=== PATIENT | female | born 1995 | race Caucasian/White ===

== ENCOUNTER 2017-12-11 21:57 | Inpatient (IN) | payer OTHER ==
[2017-12-11 22:10] VITALS: BMI 16.6
--- NOTE | 2017-12-11 22:49 | PDOC ---
History of Present Illness - General History Source: Patient Exam Limitations: No Limitations - History of Present Illness Initial Comments: 12/11/17 23:18 The patient is a 22 year old female with a significant past medical history of IV heroin abuse (2 years) who presents to the ED with complaints of right wrist pain and swelling for one day. The patient reports swelling, redness, and 9/10 pain to her right wrist. Patient describes her right wrist pain as a pressure like sensation and it feels like her wrist is going to burst. She states she developed redness on her right wrist last night that radiates midway to her right lower arm. She also reports a subjective fever associated with present symptoms. She states the pain started secondary to her injecting herself on the back of her right hand yesterday. She reports her last heroin use was this morning. Patient states she uses clean needles and does not share needles. Denies similar symptoms in the past. Denies itching or rash. Denies chest pain or shortness of breath. Denies nausea , vomiting, or diarrhea. Denies any other symptoms. <Margy Trujillo - Last Filed: 12/11/17 23:18> <Marylu Lopez - Last Filed: 12/12/17 01:54> - General Chief Complaint: Redness To Affected Area Stated Complaint: SWOLLEN WRIST Time Seen by Provider: 12/11/17 22:24 Past History <Margy Trujillo - Last Filed: 12/11/17 23:18> - Past Medical History COPD: No - Suicide/Smoking/Psychosocial Hx Smoking History: Current every day smoker Number of Cigarettes Smoked Daily: 3 Information on smoking cessation initiated: No Drug/Substance Use Hx: Yes (heroin) Substance Use Type: Heroin <Marylu Lopez - Last Filed: 12/12/17 01:54> - Past Medical History Allergies/Adverse Reactions: Allergies Allergy/AdvReac Type Severity Reaction Status Date / Time No Known Allergies Allergy Verified 12/11/17 22:08 Home Medications: Ambulatory Orders No Home Medications 0 dose .ROUTE UTDICT 02/26/14 Review of Systems - Review of Systems Able to Perform ROS?: Yes Comments:: 12/11/17 23:18 CONSTITUTIONAL: Absent: fever, chills, diaphoresis, generalized weakness, malaise, loss of appetite HEENT: Absent: rhinorrhea, nasal congestion, throat pain, throat swelling, difficulty swallowing, mouth swelling, ear pain, eye pain, visual Changes CARDIOVASCULAR: Absent: chest pain, syncope, palpitations, irregular heart rate, lightheadedness , peripheral edema RESPIRATORY: Absent: cough, shortness of breath, dyspnea with exertion, orthopnea, wheezing, stridor, hemoptysis GASTROINTESTINAL: Absent: abdominal pain, abdominal distension, nausea, vomiting, diarrhea, constipation, melena, hematochezia GENITOURINARY: Absent: dysuria, frequency, urgency, hesitancy, hematuria, flank pain, genital pain MUSCULOSKELETAL: + wrist swelling, pain and erythema SKIN: Absent: rash, itching, pallor HEMATOLOGIC/IMMUNOLOGIC: Absent: easy bleeding, easy bruising, lymphadenopathy, frequent infections ENDOCRINE: Absent: unexplained weight gain, unexplained weight loss, heat intolerance, cold intolerance NEUROLOGIC: Absent: headache, focal weakness or paresthesias, dizziness, unsteady gait, seizure, mental status changes, bladder or bowel incontinence PSYCHIATRIC: Absent: anxiety, depression, suicidal or homicidal ideation, hallucinations. All Other Systems: Reviewed and Negative <Margy Trujillo - Last Filed: 12/11/17 23:18> *Physical Exam - Vital Signs Last Vital Signs Temp Pulse Resp BP Pulse Ox 98.4 F 133 H 18 122/71 96 12/11/17 22:08 12/11/17 22:08 12/11/17 22:08 12/11/17 22:08 12/11/17 22:08 - Physical Exam Comments: 12/11/17 23:18 GENERAL: + thin appearing Awake and alert. No acute distress. HEENT: Normocephalic, atraumatic. PERRLA, EOMI. No conjunctival pallor. Sclera are non- icteric. Moist mucous membranes. Oropharynx is clear. NECK: Supple. Full ROM. No JVD. Carotid pulses 2+ and symmetric, without bruits. No thyromegaly. NCo lymphadenopathy. CARDIOVASCULAR: Regular rate and rhythm. No murmurs, rubs, or gallops. Distal pulses are 2+ and symmetric. PULMONARY: No evidence of respiratory distress. Lungs clear to auscultation bilaterally. No wheezing, rales or rhonchi. ABDOMINAL: Soft. Non-tender. Non-distended. No rebound or guarding. No organomegaly. Normoactive bowel sounds. MUSCULOSKELETAL Normal range of motion at all joints. No bony deformities or tenderness. No CVA tenderness. EXTREMITIES: No cyanosis. No clubbing. No edema. No calf tenderness. SKIN: + Cellulitis of right hand that extends to her right mid forearm, the dorsal surface of right hand is swollen. There are multiple track sam on left forearm and wrist and 2 areas of injections that are erythematous and tender on the left forearm. No rashes. No jaundice. NEUROLOGICAL: Alert, awake, appropriate. Cranial nerves 2-12 intact. No deficits to light touch and temperature in face, upper extremities and lower extremities. No motor deficits in the in face, upper extremities and lower extremities. Normoreflexic in the upper and lower extremities. Normal speech. Toes are down- going bilaterally. Gait is normal without ataxia. PSYCHIATRIC: Cooperative. Good eye contact. Appropriate mood and affect. <Margy Trujillo - Last Filed: 12/11/17 23:18> - Vital Signs Last Vital Signs Temp Pulse Resp BP Pulse Ox 98.4 F 133 H 18 122/71 96 12/11/17 22:08 12/11/17 22:08 12/11/17 22:08 12/11/17 22:08 12/11/17 22:08 <Marylu Lopez - Last Filed: 12/12/17 01:54> ED Treatment Course - LABORATORY CBC & Chemistry Diagram: 12/12/17 00:01 12/12/17 00:01 <Marylu Lopez - Last Filed: 12/12/17 01:54> *DC/Admit/Observation/Transfer - Attestations Scribe Attestion: 12/11/17 23:19 Documentation prepared by Margy Trujillo, acting as remote medical coder for Marylu Lopez MD <Margy Trujillo - Last Filed: 12/11/17 23:18> - Discharge Dispostion Admit: Yes <Marylu Lopez - Last Filed: 12/12/17 01:54> Diagnosis at time of Disposition: Cellulitis of forearm, right, Cellulitis of hand
[2017-12-11] MEDS ORDERED: PIPERACILLIN/TAZOB 3.375 GM 50 ML IVPB ONE (22:57)
[2017-12-12] MEDS ORDERED: PIPERACILLIN/TAZOB 3.375 GM 3.375 GM/50 ML BAG IVPB ONE (00:19)
[2017-12-12 00:39] LABS: BASO % 0.3 % (0-2.0); EOS % 1.4 % (0-4.5); HEMATOCRIT 30.8 % (32.4-45.2); HEMOGLOBIN 10.2 GM/dL (10.7-15.3); LYMPH % 14.3 % (8-40); MCH 26.7 pg (25.7-33.7); MCHC 33.2 g/dl (32.0-36.0); MEAN CELL VOLUME 80.4 fl (80-96); MEAN PLT VOLUME 9.7 fl (7.5-11.1); MONO % 15.8 % (3.8-10.2); NEUT % 68.2 % (42.8-82.8); PLATELET COUNT 206 K/MM3 (134-434); RBC 3.83 M/mm3 (3.60-5.2); RDW 14.3 % (11.6-15.6); WHITE BLOOD COUNT 7.3 K/mm3 (4.0-10.0)
[2017-12-12 01:24] LABS: ALBUMIN 2.8 g/dl (3.4-5.0); ANION GAP 10 (8-16); BILIRUBIN,TOTAL 0.2 mg/dL (0.2-1.0); BLOOD UREA NITROGEN 12 mg/dL (7-18); CALCIUM 8.5 mg/dL (8.5-10.1); CHLORIDE 96 mmol/L (98-107); CO2 32 mmol/L (21-32); CREATININE 0.5 mg/dL (0.55-1.02); GLUCOSE,RANDOM 78 mg/dL (74-106); POTASSIUM 3.7 mmol/L (3.5-5.1); SGOT/AST 12 U/L (15-37); SGPT/ALT 8 U/L (12-78); SODIUM 138 mmol/L (136-145)
[2017-12-12 01:25] LABS: ALK PHOS 92 U/L (45-117)
[2017-12-12] MEDS ORDERED: VANCOMYCIN 1,000 MG in DEXTROSE 5%-WATER - 250 ML IVPB STA (01:42)
[2017-12-12] MEDS ORDERED: SODIUM CHLORIDE 1,000 ML IV STA (01:44)
--- NOTE | 2017-12-12 01:46 | PN ---
Teaching Attending Note Name of Resident: Tasneem Carnes ATTENDING PHYSICIAN STATEMENT I saw and evaluated the patient. I reviewed the resident's note and discussed the case with the resident. I agree with the resident's findings and plan as documented. SUBJECTIVE: 22 F with pmhx. of IV Heroin abuse who presented with right wrist pain. Also, notes associated edema. States pain is 9/10. Pain radiated to right lower arm. States she has had subjective fevers at home. Notes she injected with a sterile needle. Notes she has not shared needles. No current fevers or chills. Does note sensation on hand. OBJECTIVE: Physical: VS: Vital Signs Period Temp Pulse Resp BP Sys/Calderon Pulse Ox Last 24 Hr 98.4 F 133 18 122/71 96 REPEAT HR 82 GEN: NAD, Resting in bed, AA0X3 HEENT: NCAT, PERRL, Throat without erythema or exudates CARD: RRR S1, S2 RESP: CTAB ABD: BSx4, NTD to palpation EXT: R. Wrist pulses intact, with edema and e CBCD WBC 7.3 K/mm3 (4.0-10.0) 12/12/17 00:01 RBC 3.83 M/mm3 (3.60-5.2) 12/12/17 00:01 Hgb 10.2 GM/dL (10.7-15.3) L 12/12/17 00:01 Hct 30.8 % (32.4-45.2) L 12/12/17 00:01 MCV 80.4 fl (80-96) 12/12/17 00:01 MCHC 33.2 g/dl (32.0-36.0) 12/12/17 00:01 RDW 14.3 % (11.6-15.6) 12/12/17 00:01 Plt Count 206 K/MM3 (134-434) 12/12/17 00:01 MPV 9.7 fl (7.5-11.1) 12/12/17 00:01 CMP Sodium 138 mmol/L (136-145) 12/12/17 00:01 Potassium 3.7 mmol/L (3.5-5.1) 12/12/17 00:01 Chloride 96 mmol/L (98-107) L 12/12/17 00:01 Carbon Dioxide 32 mmol/L (21-32) 12/12/17 00:01 Anion Gap 10 (8-16) 12/12/17 00:01 BUN 12 mg/dL (7-18) 12/12/17 00:01 Creatinine 0.5 mg/dL (0.55-1.02) L 12/12/17 00:01 Creat Clearance w eGFR > 60 (>60) 12/12/17 00:01 Random Glucose 78 mg/dL (74-106) 12/12/17 00:01 Calcium 8.5 mg/dL (8.5-10.1) 12/12/17 00:01 Total Bilirubin 0.2 mg/dL (0.2-1.0) 12/12/17 00:01 AST 12 U/L (15-37) L 12/12/17 00:01 ALT 8 U/L (12-78) L 12/12/17 00:01 Alkaline Phosphatase 92 U/L (45-117) 12/12/17 00:01 Total Protein 7.0 g/dl (6.4-8.2) 12/12/17 00:01 Albumin 2.8 g/dl (3.4-5.0) L 12/12/17 00:01 HAND XRAY- PENDING EKG: NSR 84 ASSESSMENT AND PLAN: 22 F with hx. of heroin abuse presents with Right Wrist Pain, being admitted for Cellulitis 1.) R. Wrist Cellulitis - Blood cx - CT HAND - Hand Sx consult - Vanco/Zosyn - ID Conult - Type & Screen, coags 2.) Hx. OF Heroin Abuse - Detox Consult 3.) Anemia, Normocytic - Outpt. Fe studies - B12/Folate 4.) DVt Ppx - Ambulate Place in Med-Sx
[2017-12-12] MEDS ORDERED: VANCOMYCIN 1 GRAM (PRE-DOCKED) 1,000 MG/250 ML BAG IVPB ONE (02:06)
[2017-12-12 02:10] VITALS: BP 100/56; PULSE 89; TEMP 98.2
--- NOTE | 2017-12-12 02:49 | HP ---
CHIEF COMPLAINT: R hand swelling x 3 days PCP: HISTORY OF PRESENT ILLNESS: 22 y/o F with PMH IVDA (daily heroin use for 2 yrs), who presents to the ED c/o R wrist pain over the past three days. As per pt, three days ago, she tried to inject heroin into the veins at the junction of her R wrist and base of her right thumb. She tried to inject two or three times, and then stopped since she was unable to "get it to work". A day later, her R hand and RUE became increasingly edematous, erythematous and painful. Her pain is 9/10, constant, and is a "sore aching pain" that has not been alleviated with ice application. Pt also endorses trauma to her R wrist, as she hit it on her nightstand yesterday AM when she woke up. Denies CABRERA, fever, chills, chest pain, associated numbness or tingling in her extremities, or changes in urinary or bowel function. Pt has used heroin for two years and states that she does not share needles. ER course was notable for: (1) vanc 1 g x 1 , zosyn 3.375g x 1 (2) refusal of IV line (3) Recent Travel: none PAST MEDICAL HISTORY: as above PAST SURGICAL HISTORY: denies Social History: Smoking: has smoked intermittently 2-3 cigs/day for four years, has thoughts of quitting Alcohol: denies Drugs: IVDA - daily heroin use for 2 years, marijuana frequent use Family History: unknown cancer in both parents, DM, HTN Allergies No Known Allergies Allergy (Verified 12/11/17 22:08) HOME MEDICATIONS: Home Medications Medication Instructions Recorded No Home Medications 0 dose .ROUTE UTDICT 02/26/14 REVIEW OF SYSTEMS CONSTITUTIONAL: Absent: fever, chills, diaphoresis, generalized weakness, malaise, loss of appetite, weight change HEENT: Absent: rhinorrhea, nasal congestion, throat pain, throat swelling, difficulty swallowing, mouth swelling, ear pain, eye pain, visual changes CARDIOVASCULAR: Absent: chest pain, syncope, palpitations, irregular heart rate, lightheadedness , peripheral edema RESPIRATORY: Absent: cough, shortness of breath, dyspnea with exertion, orthopnea, wheezing, stridor, hemoptysis GASTROINTESTINAL: Absent: abdominal pain, abdominal distension, nausea, vomiting, diarrhea, constipation, melena, hematochezia GENITOURINARY: Absent: dysuria, frequency, urgency, hesitancy, hematuria, flank pain, genital pain MUSCULOSKELETAL: +RUE, R hand edema Absent: myalgia, arthralgia, joint swelling, back pain, neck pain SKIN: Absent: rash, itching, pallor HEMATOLOGIC/IMMUNOLOGIC: Absent: easy bleeding, easy bruising, lymphadenopathy, frequent infections ENDOCRINE: Absent: unexplained weight gain, unexplained weight loss, heat intolerance, cold intolerance NEUROLOGIC: Absent: headache, focal weakness or paresthesias, dizziness, unsteady gait, seizure, mental status changes, bladder or bowel incontinence PSYCHIATRIC: Absent: anxiety, depression, suicidal or homicidal ideation, hallucinations. PHYSICAL EXAMINATION Vital Signs 12/11/17 12/12/17 22:08 02:09 Temperature 98.4 F 98.2 F Pulse Rate 133 H Pulse Rate [ 89 Right Radial] Respiratory 18 19 Rate Blood Pressure 122/71 Blood Pressure 100/56 [Left Arm] O2 Sat by Pulse 96 Oximetry (%) GENERAL: Awake, alert, and fully oriented, in no acute distress. HEAD: Normal with no signs of trauma. EYES: Pupils equal, round and reactive to light, extraocular movements intact, sclera anicteric, conjunctiva clear. EARS, NOSE, THROAT: Ears normal, nares patent, oropharynx clear without exudates. Moist mucous membranes. NECK: Normal range of motion, supple LUNGS: Breath sounds equal, clear to auscultation bilaterally. No wheezes, and no crackles. No accessory muscle use. HEART: Regular rate and rhythm, normal S1 and S2 without murmur, rub or gallop. ABDOMEN: Soft, nontender, not distended, normoactive bowel sounds, no guarding, no rebound, no masses. MUSCULOSKELETAL: decreased active and passive ROM in R hand. Unable to flex wrist, or flex/extend DIPs, PIPs R hand. UPPER EXTREMITIES: 2+ radial pulses, warm, well-perfused. No cyanosis. No clubbing. +R hand - edema, erythema up to mid forearm. +TTP, with streaking. + track sam R wrist LOWER EXTREMITIES: 2+ posterior tibial pulses, warm, well-perfused. No calf tenderness. No peripheral edema. NEUROLOGICAL: Cranial nerves II-XII intact. Laboratory Results 12/12/17 12/12/17 12/12/17 00:01 00:01 00:01 WBC 7.3 RBC 3.83 Hgb 10.2 L Hct 30.8 L MCV 80.4 MCH 26.7 MCHC 33.2 RDW 14.3 Plt Count 206 MPV 9.7 Neutrophils % 68.2 Lymphocytes % 14.3 Monocytes % 15.8 H Eosinophils % 1.4 Basophils % 0.3 Sodium 138 Potassium 3.7 Chloride 96 L Carbon Dioxide 32 Anion Gap 10 BUN 12 Creatinine 0.5 L Creat Clearance w eGFR > 60 Random Glucose 78 Calcium 8.5 Total Bilirubin 0.2 AST 12 L ALT 8 L Alkaline Phosphatase 92 Total Protein 7.0 Albumin 2.8 L Serum , Qual Negative 12/12/17 00:01 Calcium Albumin Serum , Qual HIV 1&2 Antibody Screen Negative HIV P24 Antigen Negative RADIO -CXR - pending -R wrist imaging - pending MICRO -Blood cx: pending ASSESSMENT/PLAN: 22 y/o F with PMH IVDA (daily heroin use for 2 yrs), who presents to the ED c/o R wrist pain over the past three days. As per pt, three days ago, she tried to inject heroin into the veins at the junction of her R wrist and base of her right thumb. Pt admitted to med-surg for R wrist cellulitis. #R wrist cellulitis -R wrist with extensive edema, erythema into hand. +Track sam, +streaking - forearm -Pt currently not septic. Afebrile, HR WNL, without white count. HIV (-) -At risk for compartment syndrome. Hand surgery consult- Dr. Rand -ID consult- Dr. Marks -Received vanc 1g, zosyn 3.375g x 1 in ED. Will continue vanc 1g IVPB daily, zosyn 3.375g q6h. -PT/PTT -Type and screen -CT-hand w/contrast #Hx heroin use -Has used heroin for two years, daily -Detox consult- Dr. Bruno #Anemia -F/u folate, B12 levels -Will continue to monitor #F/E/N Continue to monitor electrolytes Regular diet, however can change to NPO if procedure needed #Dispo med-surg Visit type - Emergency Visit Emergency Visit: Yes ED Registration Date: 12/12/17 Care time: The patient presented to the Emergency Department on the above date and was hospitalized for further evaluation of their emergent condition. - New Patient This patient is new to me today: Yes Date on this admission: 12/12/17 - Critical Care Critical Care patient: No Hospitalist Screening - Colonoscopy Questionnaire Colonoscopy Questionnaire: Colonoscopy Questionnaire - Patient: 50 - 75 years old and never had a screening colonoscopy: Unknown History of colon or rectal polyps, or CA: Unknown History of IBD, Crohn's disease or UC: Unknown History of abdominal radiation therapy as a child: Unknown - Relative: 1 with colon or rectal CA, or polyps at age 60 or younger: Unknown Colon or rectal CA diagnosed at age 45 or younger: Unknown Multiple relatives with colon or rectal CA: Unknown - Outcome: Screening Result: Negative Screen
[2017-12-12] MEDS ORDERED: PIPERACILLIN/TAZOB 3.375 GM/50 ML PRE-DOCKED IVPB SCH (06:00)
[2017-12-12] MEDS ORDERED: PIPERACILLIN/TAZOB 3.375 GM/50 ML PRE-DOCKED IVPB ONE (06:15)
--- NOTE | 2017-12-12 09:01 | CONSULT ---
Consult Detox [facility] Reason for Current Admission/Consult: substance use Referred by:: petra conteh - History History of Present Illness: Patient discharged prior to completion fo consultation
--- NOTE | 2017-12-12 10:35 | CONSULT ---
Consult Consult Specialty:: hand surgery Reason for Consultation:: hand cellulitis - History of Present Illness Chief Complaint: right wrist hand cellulitis History of Present Illness: 22 yo RHD female with PMH IVDA (daily heroin use for 2 yrs), who presents to the ED c/o R wrist pain over the past three days. As per pt, three days ago, she tried to inject heroin into the veins at the junction of her R wrist and base of her right thumb. we were asked to assess. She left AMA at 416AM before we could assess - History Source History Provided By: Patient, Medical Record Limitations to Obtaining History: Intoxication - Alcohol/Substance Use History of Substance Use: reports: Heroin, Marijuana - Smoking History Smoking history: Current every day smoker Aproximately how many cigarettes per day: 3 Home Medications - Allergies Allergies/Adverse Reactions: Allergies Allergy/AdvReac Type Severity Reaction Status Date / Time No Known Allergies Allergy Verified 12/11/17 22:08 - Home Medications Home Medications: Ambulatory Orders No Home Medications 0 dose .ROUTE UTDICT 02/26/14 Physical Exam Vital Signs: Vital Signs Temperature 98.2 F 12/12/17 02:09 Pulse Rate 89 12/12/17 02:09 Respiratory Rate 19 12/12/17 02:09 Blood Pressure 100/56 12/12/17 02:09 O2 Sat by Pulse Oximetry (%) 96 12/11/17 22:08 Vital Signs Period Temp Pulse Resp BP Sys/Calderon Pulse Ox Last 24 Hr 98.2 F-98.4 F 89-133 18-19 100-122/56-71 96 Labs: CBC, BMP 12/12/17 00:01 12/12/17 00:01 Problem List - Problems (1) Cellulitis of forearm, right Assessment/Plan: 22 yo RHD female with PMH IVDA (daily heroin use for 2 yrs), who presents to the ED c/o R wrist pain over the past three days. As per pt, three days ago, she tried to inject heroin into the veins at the junction of her R wrist and base of her right thumb. we were asked to assess. She left AMA at 416AM before we could assess Code(s): L03.113 - CELLULITIS OF RIGHT UPPER LIMB (2) Cellulitis of hand Code(s): L03.119 - CELLULITIS OF UNSPECIFIED PART OF LIMB
[2017-12-12] MEDS ORDERED: PIPERACIL/TAZOB 3.375 GM 3.375 GM/50 ML PREMIX IVPB SCH (15:00)
[2017-12-13] MEDS ORDERED: VANCOMYCIN 1,000 MG in DEXTROSE 5%-WATER - 250 ML IVPB SCH (03:00)
== END 2017-12-12 03:00 | disposition left against medical advice (07) | DRG 383 ==
LOC: JER 21:57 → JERBED 12-12 01:54
PROVIDERS: ADMIT Internal Medicine; ATTEND Nurse Practitioner Acute Care
DX: L03.113 Cellulitis of right upper limb (principal); D64.9 Anemia, unspecified; F17.210 Nicotine dependence, cigarettes, uncomplicated; F11.20 Opioid dependence, uncomplicated
CPT/HCPCS: 36415; 71046-TC-FY; 73130-TC-RT-FY; 80053; 82607; 82746; 84703; 85025; 87040; 87389; 99282-25; J7030

== ENCOUNTER 2019-10-02 01:11 | Inpatient (IN) | payer OTHER ==
--- NOTE | 2019-10-02 01:35 | PDOC ---
History of Present Illness - General Chief Complaint: Overdose Stated Complaint: OVERDOSE - History of Present Illness Initial Comments: The pt is a 24F w/ a history of polysubstance abuse who presents for evaluation after reported use of heroin. The pt reportedly used 4 bags of heroin tonight with possible cocaine and xanax use. The pt was brought to her parents who had Narcan IH at home. The parents administered Narcan 8mg IH and 4mg IH was administered by EMS. The pt is 1 month s/p 30 day rehab. Parents report 7 years of substance abuse Pt unable to give history Per parents, no PMH, PSH, allergies 10/02/19 01:58 Past History - Past Medical History Allergies/Adverse Reactions: Allergies Allergy/AdvReac Type Severity Reaction Status Date / Time No Known Allergies Allergy Verified 10/02/19 01:50 Home Medications: Ambulatory Orders No Home Medications 0 dose .ROUTE UTDICT 02/26/14 COPD: No - Psycho Social/Smoking Cessation Hx Smoking History: Current every day smoker Number of Cigarettes Smoked Daily: 3 Drug/Substance Use Hx: Yes (heroin) Substance Use Type: Heroin Review of Systems - Review of Systems Able to Perform ROS?: No (2/2 medical condition) *Physical Exam - Vital Signs Initial Vital Signs Temp Pulse Resp BP Pulse Ox 97.9 F 102 H 17 116/73 100 10/02/19 01:15 10/02/19 01:15 10/02/19 01:15 10/02/19 01:15 10/02/19 01:15 10/02/19 05:35 - Physical Exam GENERAL: Obtunded, moans to sternal rub, does not follow commands HEAD: No signs of trauma, normocephalic, atraumatic EYES: pupils pinpoint, sclera anicteric, conjunctiva clear ENT: Oropharynx clear without exudates. No uvular deviation. Moist mucosa LUNGS: No distress, speaks in full sentences, clear to auscultation bilaterally HEART: Tachycardic rate with regular rhythm, normal S1 and S2, no murmurs appreciated, peripheral pulses normal and equal bilaterally ABDOMEN: Soft, normoactive bowel sounds EXTREMITIES: Normal inspection, Normal range of motion, no edema. No clubbing or cyanosis NEUROLOGICAL: Cranial nerves II through XII grossly intact SKIN: Warm, Dry 10/02/19 01:35 Procedures - Intubation Intubation Method: orotracheal Blade used: Mac Tube Size (Fr): 7.0 Medications: Rocuronium Tube position @ lip (cm): 22 Tube position confirmed by: Direct visualization, CO2 detector, Chest x-ray, Breath sounds Breath Sounds after Intubation: equal Intubation Complications: no complications Post Intubation Xray: Yes ED Treatment Course - LABORATORY CBC & Chemistry Diagram: 10/02/19 03:10 10/02/19 03:10 - RADIOLOGY Radiograph Interpretation: THIS IS A PRELIMINARY REPORT FROM [facility] DATE OF SERVICE: 2019-10-02 03:45:11 EXAM: CT HEAD WITHOUT CONTRAST No acute hemorrhage, mass or acute territorial infarct. Mucoperiosteal thickening paranasal sinuses. Trace fluid right maxillary sinus. Visualized mastoid air cells clear. Endotracheal tube. 10/02/19 04:40 Medical Decision Making - Critical Care Time Total Critical Care Time (minutes): 60 Critical Care Statement: The care of this patient involved high complexity decision making to prevent further life threatening deterioration of the patient 's condition and/or to evaluate & treat vital organ system(s) failure or risk of failure. - Medical Decision Making The pt is a 24F w/ a history of polysubstance abuse who presents for evaluation s/p known heroin use today and likely benzo and cocaine use. Pt given Narcan 0.8mg followed by 1.2mg with minimal response Respiratory depression likely 2/2 benzo use in addition to cocaine and heroin Will intubate for airway protection/respiratory depression Pt intubated with Roderick 50mg IV once ETT 22cm at the lip Pt with evidence of UTI, will give Ceftriaxone 1g IV once Lytes unremarkable LFTs wnl Pt signed out to ICU 10/02/19 04:21 CT head w/o acute pathology Propofol given for sedation Pt signed out to [facility] Admitting 10/02/19 05:38 Discharge - Discharge Information Problems reviewed: Yes Clinical Impression/Diagnosis: Heroin abuse, Respiratory depression AMS (altered mental status) Qualifiers: Altered mental status type: unspecified Qualified Code(s): R41.82 - Altered mental status, unspecified UTI (urinary tract infection) Qualifiers: Urinary tract infection type: acute cystitis Hematuria presence: without hematuria Qualified Code(s): N30.00 - Acute cystitis without hematuria Condition: Critical - Admission Yes - Follow up/Referral - Patient Discharge Instructions - Post Discharge Activity
--- NOTE | 2019-10-02 01:51 | PDOC ---
Attending Attestation - Resident Resident Name: Jakub Curtis - ED Attending Attestation I have performed the following: I have examined & evaluated the patient, The case was reviewed & discussed with the resident, I agree w/resident's findings & plan - HPI HPI: 10/02/19 02:56 see resident hpi - Physicial Exam PE: 10/02/19 02:56 agree with resident exam - Critical Care Time Total Critical Care Time: 90 Critical Care Statement: The care of this patient involved high complexity decision making to prevent further life threatening deterioration of the patient 's condition and/or to evaluate & treat vital organ system(s) failure or risk of failure. - Medical Decision Making 10/02/19 02:24-year-old female with respiratory depression secondary to benzodiazepine and heroin overdose Due to persistent respiratory distress despite multiple doses of Narcan Patient intubated with a 7.0 ET tube Tube placement confirmed Post intubation chest x-ray obtained Will admit to ICU for further management
[2019-10-02] MEDS ORDERED: NALOXONE HCL 0.4 MG/ML VIAL IVPUSH ONE ×3 (02:11→03:14)
[2019-10-02] MEDS ORDERED: NALOXONE HCL 0.4 MG/ML VIAL ONE ×2 (02:16→02:21)
[2019-10-02] MEDS ORDERED: RAPID SEQUENCE INTUBATION KIT NR ONE ×2 (02:31→03:38)
[2019-10-02] MEDS ORDERED: FLUCONAZOLE 200 MG/NS 100 ML IVPB ONE (03:00)
[2019-10-02] MEDS ORDERED: ROCURONIUM BROMIDE 50 MG/5 ML VIAL IV ONE ×3 (03:14→03:38)
[2019-10-02 03:26] LABS: BASO % 0.3 % (0-2.0); EOS % 0.1 % (0-4.5); HEMATOCRIT 39.6 % (32.4-45.2); LYMPH % 4.8 % (8-40); MCH 28.8 pg (25.7-33.7); MCHC 32.7 g/dl (32.0-36.0); MEAN CELL VOLUME 87.9 fl (80-96); MEAN PLT VOLUME 10.2 fl (7.5-11.1); MONO % 5.9 % (3.8-10.2); NEUT % 88.9 % (42.8-82.8); PLATELET COUNT 291 K/MM3 (134-434); RBC 4.51 M/mm3 (3.60-5.2); RDW 14.9 % (11.6-15.6); WHITE BLOOD COUNT 14.4 K/mm3 (4.0-10.0)
[2019-10-02 03:33] LABS: EPI CELLS 6.8 /HPF (0-5/HPF); HYALINE CASTS 8 /lpf (0-8); URINE APPEARANCE CLOUDY; URINE BACTERIA >9000 /hpf (NEGATIVE); URINE BILIRUBIN NEGATIVE (NEGATIVE); URINE COLOR YELLOW; URINE GLUCOSE (UA) 3+ (NEGATIVE); URINE KETONE NEGATIVE (NEGATIVE); URINE LEUK ESTERASE NEGATIVE (NEGATIVE); URINE NITRITE POSITIVE (NEGATIVE); URINE PROTEIN 1+ (NEGATIVE); URINE RBC 3 /hpf (0-4); URINE UROBILINOGEN 0.2 mg/dL (0.2-1.0); URINE WBC 6 /hpf (0-5)
[2019-10-02 03:38] LABS: INR 0.93 (0.83-1.09)
[2019-10-02 03:41] LABS: ACTIVATED PTT 31.1 SECONDS (25.2-36.5)
[2019-10-02] MEDS ORDERED: CEFTRIAXONE 1 GM in DEXTROSE 5%-WATER - 100 ML IVPB ONE (03:42)
[2019-10-02 03:43] LABS: METHADONE, UR NEGATIVE ng/ml (CUTOFF=300); OPIATES, URI NEGATIVE ng/ml (CUTOFF=300); PHENCYCLIDINE,URINE NEGATIVE ng/ml (CUTOFF=25); URINE AMPHETAMINES NEGATIVE ng/ml (CUTOFF=500); URINE BARBITURATES NEGATIVE ng/ml (CUTOFF=200); URINE BENZODIAZEPINES NEGATIVE ng/ml (CUTOFF=200)
[2019-10-02] MEDS ORDERED: CEFTRIAXONE 1 GM/50 ML BAG ONE (03:49)
[2019-10-02 04:01] LABS: COCAINE, UR POSITIVE ng/ml (CUTOFF=300)
[2019-10-02 04:12] LABS: ALK PHOS 102 U/L (45-117); ANION GAP 7 MMOL/L (8-16); BILIRUBIN,TOTAL 0.1 mg/dL (0.2-1); BLOOD UREA NITROGEN 12.1 mg/dL (7-18); CALCIUM 8.5 mg/dL (8.5-10.1); CHLORIDE 105 mmol/L (98-107); CO2 27 mmol/L (21-32); CREATININE 0.7 mg/dL (0.55-1.3); GLUCOSE,RANDOM 77 mg/dL (74-106); MAGNESIUM 2.3 mg/dL (1.8-2.4); POTASSIUM 3.8 mmol/L (3.5-5.1); SGOT/AST 54 U/L (15-37); SGPT/ALT 44 U/L (13-61); SODIUM 139 mmol/L (136-145); TOT PROT 7.2 g/dl (6.4-8.2)
--- NOTE | 2019-10-02 04:36 | PN ---
Teaching Attending Note Name of Resident: Zachariah Larose ATTENDING PHYSICIAN STATEMENT I saw and evaluated the patient. I reviewed the resident's note and discussed the case with the resident. I agree with the resident's findings and plan as documented. SUBJECTIVE: Patient is a 24 year old woman with PMH of IVDU, Tobacco use and Polysubstance abuse (heroin, marijuana, cocaine, xanax), recent Rehab stay (1 month ago)was brought in by EMS for drug overdose. Per parents who called EMS, she was at a different location with her boyfriend when she used drugs. She was brought back to her parents house, where EMS arrived on scene at around she was initially alert and oriented when she initially got to her parents house but became increasingly unresponsive. She was given 12 mg of intranasal narcan (4 mg from parents, 8 mg EMS) on scene. Parents report she used 4 dime bags of heroin. In the ER she got 2 doses of IV naloxone (0.8 then 0.2), remained altered and was intubated. OBJECTIVE: Intubated and sedated on Propofol Vital Signs Period Temp Pulse Resp BP Sys/Calderon Pulse Ox Last 24 Hr 97.9 F 84-127 16-20 107-133/73-83 95-100 HEENT: No Jaundice, eye redness or discharge, Pinpoint pupils;Normocephalic, atraumatic. External ears are normal. No nasal discharge. Neck: Supple, nontender. No palpable adenopathy or thyromegaly. No JVD Chest: Good effort. Clear to auscultation and percussion. Heart: Regular. No S3, rub or murmur Abdomen: Not distended, soft, nontender and no HSM. No rebound or guarding. Normal bowel sounds. Ext: Peripheral pulses intact. No leg edema. Skin: Warm and dry. No petechiae, rash or ecchymosis. Neuro: Intubated and sedated. Psych: Unable to assess. Current Medications Generic Name Dose Route Start Last Admin Trade Name Freq PRN Reason Stop Dose Admin Propofol 1,000,000 mcg in 100 mls @ 1.429 mls/hr 10/02/19 05:00 10/02/19 05: 15 Diprivan - IVPB 8 mcg/kg/min TITR ROSALIA 2.286 mls/hr Titration Protocol 5 MCG/KG/MIN Home Medications Medication Instructions Recorded No Home Medications 0 dose .ROUTE UTDICT 02/26/14 Abnormal Lab Results 10/02/19 10/02/19 10/02/19 03:10 03:10 03:10 WBC Absolute Neuts (auto) Neutrophils % Lymphocytes % ABG pCO2 at Pt Temp ABG pO2 at Pt Temp ABG O2 Sat (Measured) Anion Gap Total Bilirubin AST Urine Protein 1+ H Urine Glucose (UA) 3+ H Urine Nitrite Positive H Salicylates < 1.7 L Cocaine Screen Positive A* U Marijuana (THC) Screen Positive A* 10/02/19 10/02/19 10/02/19 03:10 03:10 05:03 WBC 14.4 H Absolute Neuts (auto) 12.8 H Neutrophils % 88.9 H D Lymphocytes % 4.8 L D ABG pCO2 at Pt Temp 47.2 H ABG pO2 at Pt Temp 62.9 L ABG O2 Sat (Measured) 90.6 L Anion Gap 7 L Total Bilirubin 0.1 L AST 54 H Urine Protein Urine Glucose (UA) Urine Nitrite Salicylates Cocaine Screen U Marijuana (THC) Screen ASSESSMENT AND PLAN: 1. Drug overdose/Acute hypoxic respiratory failure - Patient intubated and sedated on Propofol. No acute abnormality on CXR. Has leukocytosis and in view a history of IVDU, though afebrile, will do blood cultures and treat with IV Vancomycin and Zosyn. Urine toxicology revealed marijuana and cocaine. Head CT scan pending. Continue IV NS and IV protonix. Poison control contacted and recommended active observation and monitoring on the ventilator and sedation with propofol. Will monitor closely for drug withdrawal. Implement [facility] alcohol withdrawal protocol and do neurochecks. Implement seizure precautions. Treat with thiamine and folic acid and monitor electrolytes (Ca,Mg,K,P). When patient wakes up, will business and financial counsel patient about abstaining from illicit drug abuse. Will consult account support specialist and refer to drug detox upon discharge. Will continue comprehensive care for all of patients comorbid conditions. 2. Tobacco Use When she wakes up, will business and financial counsel her on risks associated with tobacco use. We will provide patient all the necessary assistance to facilitate smoking cessation and prescribe Nicotine patch. 3. DVT prophylaxis - Lovenox 40 mg SQ q 24 hours. 4. Advance directives - Full code
[2019-10-02] MEDS ORDERED: PROPOFOL 1,000,000 MCG/100 ML VIAL ONE (04:54)
[2019-10-02] MEDS ORDERED: PROPOFOL 1,000,000 MCG/100 ML VIAL IVPB SCH (05:00)
--- NOTE | 2019-10-02 05:11 | CONSULT ---
Consultation: REQUESTING PROVIDER: CONSULT REQUEST: We have been asked to medically evaluate this patient for ( specify). respiratory depression requiring intubation overdose HISTORY OF PRESENT ILLNESS: 24y/o F hx of polysubstance abuse (heroin, cocain, benzos (xanax)) recent discharge from rehab (1 month ago)was brought in by EMS for drug overdose. Per parents who called EMS, she was at a different location with her boyfriend when she used drugs. She was brought back to her parents house, where EMS arrived on scene at around 1a.m. She was initially alert and oriented when she initially got to her parents house but became increasingly unresponsive. She was given 12 mg of intranasal narcan (4mg from parents, 8mg EMS) on scene. Parents report she used 4 dime bags of heroin. Possible cocaine, heroin, marijuana and benzodiazepine use as well. ED course received 2 doses of IV naloxone (0.8 then 0.2) remained altered Intubated vent settings. rr 16, tidal volume 450, PEEP 5 FiO2 50 REVIEW OF SYSTEMS: unable to perform pt intubated. CONSTITUTIONAL: Absent: fever, chills, diaphoresis, generalized weakness, malaise, loss of appetite, weight change HEENT: Absent: rhinorrhea, nasal congestion, throat pain, throat swelling, difficulty swallowing, mouth swelling, ear pain, eye pain, visual changes CARDIOVASCULAR: Absent: chest pain, syncope, palpitations, irregular heart rate, lightheadedness , peripheral edema RESPIRATORY: Absent: cough, shortness of breath, dyspnea with exertion, orthopnea, wheezing, stridor, hemoptysis GASTROINTESTINAL: Absent: abdominal pain, abdominal distension, nausea, vomiting, diarrhea, constipation, melena, hematochezia GENITOURINARY: Absent: dysuria, frequency, urgency, hesitancy, hematuria, flank pain, genital pain MUSCULOSKELETAL: Absent: myalgia, arthralgia, joint swelling, back pain, neck pain SKIN: Absent: rash, itching, pallor HEMATOLOGIC/IMMUNOLOGIC: Absent: easy bleeding, easy bruising, lymphadenopathy, frequent infections ENDOCRINE: Absent: unexplained weight gain, unexplained weight loss, heat intolerance, cold intolerance NEUROLOGIC: Absent: headache, focal weakness or paresthesias, dizziness, unsteady gait, seizure, mental status changes, bladder or bowel incontinence PSYCHIATRIC: Absent: anxiety, depression, suicidal or homicidal ideation, hallucinations. PHYSICAL EXAMINATION Vital Signs - 24 hr 01/07/20 01/07/20 01/07/20 01:15 02:27 03:01 Temperature 97.9 F Pulse Rate 102 H 127 H Pulse Rate [ 92 H Apical] Respiratory 17 16 16 Rate Blood Pressure 116/73 Blood Pressure 107/77 [Left Arm] O2 Sat by Pulse 100 98 100 Oximetry (%) 10/02/19 10/02/19 10/02/19 03:16 03:28 04:25 Temperature Pulse Rate Pulse Rate [ 99 H 84 Apical] Respiratory 16 16 16 Rate Blood Pressure Blood Pressure 133/77 120/83 [Left Arm] O2 Sat by Pulse 97 95 Oximetry (%) 10/02/19 04:30 Temperature Pulse Rate Pulse Rate [ Apical] Respiratory 20 Rate Blood Pressure Blood Pressure [Left Arm] O2 Sat by Pulse Oximetry (%) GENERAL: intubated and sedated. moans and moves in response to touch HEAD: Normal with no signs of trauma. EYES: Pupils equal, round and reactive to light. injected conjunctiva EARS, NOSE, THROAT: Ears normal, nares patent.intubated with 7.0 ET tube NECK: no JVD, trachea midline LUNGS: Breath sounds equal, clear to auscultation bilaterally. No wheezes, and no crackles. HEART: tachycardic, normal rhythm. normal S1 and S2 without murmur, rub or gallop. ABDOMEN: Soft, nontender, not distended, normoactive bowel sounds. MUSCULOSKELETAL: Normal range of motion at all joints. No bony deformities or tenderness. No CVA tenderness. UPPER EXTREMITIES: 2+ pulses, warm, well-perfused. No cyanosis. No clubbing. Cap refill <2 seconds. No peripheral edema. LOWER EXTREMITIES: 2+ pulses, warm, well-perfused. No calf tenderness. No peripheral edema. NEUROLOGICAL: Cranial nerves II-XII intact. Normal speech. Normal gait. PSYCHIATRIC: Cooperative. Good eye contact. Appropriate mood and affect. SKIN: Warm, dry, normal turgor, no rashes or lesions noted. Laboratory Results - last 24 hr 10/02/19 10/02/19 10/02/19 02:25 03:10 03:10 WBC RBC Hgb Hct MCV MCH MCHC RDW Plt Count MPV Absolute Neuts (auto) Neutrophils % Lymphocytes % Monocytes % Eosinophils % Basophils % Nucleated RBC % PT with INR 11.00 INR 0.93 PTT (Actin FS) 31.1 Sodium Potassium Chloride Carbon Dioxide Anion Gap BUN Creatinine Est GFR (CKD-EPI)AfAm Est GFR (CKD-EPI)NonAf POC Glucometer 80 Random Glucose Calcium Phosphorus Magnesium Total Bilirubin AST ALT Alkaline Phosphatase Total Protein Albumin Serum , Qual Urine Color Urine Appearance Urine pH Ur Specific [place] Urine Protein Urine Glucose (UA) Urine Ketones Urine Blood Urine Nitrite Urine Bilirubin Urine Urobilinogen Ur Leukocyte Esterase Urine WBC (Auto) Urine RBC (Auto) Urine Casts (Auto) U Epithel Cells (Auto) U Sm Round Cell (Auto) Urine Bacteria (Auto) Salicylates < 1.7 L Opiates Screen Methadone Screen Acetaminophen <2.0 Barbiturate Screen Phencyclidine Screen Ur Amphetamines Screen MDMA (Ecstasy) Screen Benzodiazepines Screen Cocaine Screen U Marijuana (THC) Screen Alcohol, Quantitative 10/02/19 10/02/19 10/02/19 03:10 03:10 03:10 WBC RBC Hgb Hct MCV MCH MCHC RDW Plt Count MPV Absolute Neuts (auto) Neutrophils % Lymphocytes % Monocytes % Eosinophils % Basophils % Nucleated RBC % PT with INR INR PTT (Actin FS) Sodium Potassium Chloride Carbon Dioxide Anion Gap BUN Creatinine Est GFR (CKD-EPI)AfAm Est GFR (CKD-EPI)NonAf POC Glucometer Random Glucose Calcium Phosphorus Magnesium Total Bilirubin AST ALT Alkaline Phosphatase Total Protein Albumin Serum , Qual Negative Urine Color Yellow Urine Appearance Cloudy Urine pH 6.0 Ur Specific [place] 1.015 Urine Protein 1+ H Urine Glucose (UA) 3+ H Urine Ketones Negative Urine Blood Negative Urine Nitrite Positive H Urine Bilirubin Negative Urine Urobilinogen 0.2 Ur Leukocyte Esterase Negative Urine WBC (Auto) 6 Urine RBC (Auto) 3 Urine Casts (Auto) 8 U Epithel Cells (Auto) 6.8 U Sm Round Cell (Auto) Present Urine Bacteria (Auto) >9000 Salicylates Opiates Screen Negative Methadone Screen Negative Acetaminophen Barbiturate Screen Negative Phencyclidine Screen Negative Ur Amphetamines Screen Negative MDMA (Ecstasy) Screen Negative Benzodiazepines Screen Negative Cocaine Screen Positive A* U Marijuana (THC) Screen Positive A* Alcohol, Quantitative 10/02/19 10/02/19 10/02/19 03:10 03:10 03:10 WBC 14.4 H RBC 4.51 Hgb 13.0 Hct 39.6 D MCV 87.9 MCH 28.8 MCHC 32.7 RDW 14.9 Plt Count 291 D MPV 10.2 Absolute Neuts (auto) 12.8 H Neutrophils % 88.9 H D Lymphocytes % 4.8 L D Monocytes % 5.9 Eosinophils % 0.1 D Basophils % 0.3 Nucleated RBC % 0 PT with INR INR PTT (Actin FS) Sodium Cancelled 139 Potassium Cancelled 3.8 Chloride Cancelled 105 Carbon Dioxide Cancelled 27 Anion Gap Cancelled 7 L BUN Cancelled 12.1 Creatinine Cancelled 0.7 Est GFR (CKD-EPI)AfAm Cancelled 141.54 Est GFR (CKD-EPI)NonAf Cancelled 122.12 POC Glucometer Random Glucose Cancelled 77 Calcium Cancelled 8.5 Phosphorus Cancelled 4.0 Magnesium Cancelled 2.3 Total Bilirubin Cancelled 0.1 L AST Cancelled 54 H ALT Cancelled 44 Alkaline Phosphatase Cancelled 102 Total Protein Cancelled 7.2 Albumin Cancelled 4.0 Serum , Qual Urine Color Urine Appearance Urine pH Ur Specific [place] Urine Protein Urine Glucose (UA) Urine Ketones Urine Blood Urine Nitrite Urine Bilirubin Urine Urobilinogen Ur Leukocyte Esterase Urine WBC (Auto) Urine RBC (Auto) Urine Casts (Auto) U Epithel Cells (Auto) U Sm Round Cell (Auto) Urine Bacteria (Auto) Salicylates Opiates Screen Methadone Screen Acetaminophen Barbiturate Screen Phencyclidine Screen Ur Amphetamines Screen MDMA (Ecstasy) Screen Benzodiazepines Screen Cocaine Screen U Marijuana (THC) Screen Alcohol, Quantitative < 3 ASSESSMENT/PLAN: 24y/o F hx of polysubstance abuse (heroin, cocain, benzos (xanax)) recent discharge from rehab (1 month ago)was brought in by EMS for drug overdose. Neuro altered mental status due to acute toxic metabolic syndrome secondary to drug overdose -intubated -per poison control center, management will be largely supportive propofol is preferred for sedation, if sedation is needed. -patient not currently sedated -will continue to reassess mental status Head CT - No acute hemorrhage, mass or acute territorial infarct. Mucoperiosteal thickening paranasal sinuses. Trace fluid right maxillary sinus. Visualized mastoid air cells clear. Endotracheal tube. Pulm acute hypoxic respiratory depression -pt intubated -CXR -vent settings. rr 16, tidal volume 450, PEEP 5 FiO2 50 CV EKG: sinus tachycardia, QTC 457. otherwise normal follow up troponins, cpk Hemodynamically stable. UDS + for cocaine and marijuana. negative for opiates. urine + for nitrites, negative for leukocyte esterase pt received ceftriaxone in the ED FEN Fluids: as needed to maintain hemodynamics E: continue to monitor N: NPO DVT PPx: 5000 units subQ heparin tid Visit type - Emergency Visit Emergency Visit: Yes Care time: The patient presented to the Emergency Department on the above date and was hospitalized for further evaluation of their emergent condition. - New Patient This patient is new to me today: Yes Date on this admission: 10/02/19 - Critical Care Critical Care patient: Yes ATTENDING PHYSICIAN STATEMENT I saw and evaluated the patient. I reviewed the resident's note and discussed the case with the resident. I agree with the resident's findings and plan as documented. SUBJECTIVE: OBJECTIVE: ASSESSMENT AND PLAN:
[2019-10-02 05:12] LABS: ARTERIAL BLD GAS O2 SATURATION 90.6 % (95-98); ARTERIAL BLOOD GAS BASE EXCESS -0.3 meq/l (-2-2); ARTERIAL BLOOD GAS PCO2 47.2 mmHg (35-45); ARTERIAL BLOOD GAS PO2 62.9 mmHg (80-100); ARTERIAL BLOOD GAS pH 7.35 (7.35-7.45); CARBOXYHEMOGLOBIN 1.3 % (0-2)
[2019-10-02 05:20] LABS: ALLENS TEST POSITIVE
[2019-10-02] MEDS ORDERED: SODIUM CHLORIDE 1,000 ML IV SCH (06:15)
[2019-10-02 06:18] VITALS: BMI 22.7
--- NOTE | 2019-10-02 06:23 | HP ---
CHIEF COMPLAINT: AMS due to drug overdose PCP: N/A HISTORY OF PRESENT ILLNESS: 24y/o F with hx of polysubstance abuse (heroin, cocaine, benzos (xanax)) recent discharge from rehab (1 month ago)was brought in by EMS for drug overdose. Per parents who called EMS, she was at a different location with her boyfriend when she used about 4 bags of heroin unknown mode of administration and benzos and cocaine of unknown amount. She was brought back to her parents house by her boyfriend. She was initially alert and oriented when she initially got to her parents house but became increasingly unresponsive. She was given 12 mg of intranasal narcan (4mg from parents, 8mg EMS) on scene , where EMS arrived at around 1a.m. ER course was notable for: (1) CBC with leukocytosis 14.4, CMP unremarkable, UA negative for UTI but 3+ glucose and 1+ protein, Utox THC and cocaine (2) Head CT no acute pathology, CXR no acute findings (3) intubated in ED via RSI Recent Travel: unknown PAST MEDICAL HISTORY: none PAST SURGICAL HISTORY: none Social History: as above Allergies No Known Allergies Allergy (Verified 10/02/19 01:50) HOME MEDICATIONS: Home Medications Medication Instructions Recorded No Home Medications 0 dose .ROUTE UTDICT 02/26/14 REVIEW OF SYSTEMS unobtainable PHYSICAL EXAMINATION Vital Signs - 24 hr 10/02/19 10/02/19 10/02/19 01:15 02:27 03:01 Temperature 97.9 F Pulse Rate 102 H 127 H Pulse Rate [ 92 H Apical] Respiratory 17 16 16 Rate Blood Pressure 116/73 Blood Pressure 107/77 [Left Arm] O2 Sat by Pulse 100 98 100 Oximetry (%) 10/02/19 10/02/19 10/02/19 03:16 03:28 04:25 Temperature Pulse Rate Pulse Rate [ 99 H 84 Apical] Respiratory 16 16 16 Rate Blood Pressure Blood Pressure 133/77 120/83 [Left Arm] O2 Sat by Pulse 97 95 Oximetry (%) 10/02/19 10/02/19 04:30 05:45 Temperature 98.6 F Pulse Rate 89 Pulse Rate [ Apical] Respiratory 20 16 Rate Blood Pressure 110/67 Blood Pressure [Left Arm] O2 Sat by Pulse 95 Oximetry (%) GENERAL: intubated HEAD: ATNC EYES: pinpoint pupils, sclera anicteric, conjunctiva clear. EARS, NOSE, THROAT: oropharynx clear without exudates. Moist mucous membranes. NECK: without lymphadenopathy, JVD, or masses. LUNGS: Breath sounds equal, clear to auscultation bilaterally. No wheezes, and no crackles. No accessory muscle use. HEART: Regular rate and rhythm, normal S1 and S2 without murmur, rub or gallop. ABDOMEN: Soft, not distended, normoactive bowel sounds. UPPER EXTREMITIES: 2+ pulses, warm, well-perfused. No cyanosis. No clubbing. No peripheral edema. LOWER EXTREMITIES: 2+ pulses, warm, well-perfused. No calf tenderness. No peripheral edema. SKIN: Warm, dry, normal turgor, no rashes or lesions noted, normal capillary refill. Laboratory Results - last 24 hr 10/02/19 10/02/19 10/02/19 02:25 03:10 03:10 WBC RBC Hgb Hct MCV MCH MCHC RDW Plt Count MPV Absolute Neuts (auto) Neutrophils % Lymphocytes % Monocytes % Eosinophils % Basophils % Nucleated RBC % PT with INR 11.00 INR 0.93 PTT (Actin FS) 31.1 Anticoagulation Therapy Puncture Site ABG pH ABG pCO2 at Pt Temp ABG pO2 at Pt Temp ABG HCO3 ABG O2 Sat (Measured) ABG O2 Content ABG Base Excess Carlos Test Carboxyhemoglobin Methemoglobin O2 Delivery Device Oxygen Flow Rate Vent Mode Vent Rate Mechanical Rate PEEP Pressure Support Vent Sodium Potassium Chloride Carbon Dioxide Anion Gap BUN Creatinine Est GFR (CKD-EPI)AfAm Est GFR (CKD-EPI)NonAf POC Glucometer 80 Random Glucose Calcium Phosphorus Magnesium Total Bilirubin AST ALT Alkaline Phosphatase Total Protein Albumin Serum , Qual Urine Color Urine Appearance Urine pH Ur Specific [place] Urine Protein Urine Glucose (UA) Urine Ketones Urine Blood Urine Nitrite Urine Bilirubin Urine Urobilinogen Ur Leukocyte Esterase Urine WBC (Auto) Urine RBC (Auto) Urine Casts (Auto) U Epithel Cells (Auto) U Sm Round Cell (Auto) Urine Bacteria (Auto) Salicylates < 1.7 L Opiates Screen Methadone Screen Acetaminophen <2.0 Barbiturate Screen Phencyclidine Screen Ur Amphetamines Screen MDMA (Ecstasy) Screen Benzodiazepines Screen Cocaine Screen U Marijuana (THC) Screen Alcohol, Quantitative 10/02/19 10/02/19 10/02/19 03:10 03:10 03:10 WBC RBC Hgb Hct MCV MCH MCHC RDW Plt Count MPV Absolute Neuts (auto) Neutrophils % Lymphocytes % Monocytes % Eosinophils % Basophils % Nucleated RBC % PT with INR INR PTT (Actin FS) Anticoagulation Therapy Puncture Site ABG pH ABG pCO2 at Pt Temp ABG pO2 at Pt Temp ABG HCO3 ABG O2 Sat (Measured) ABG O2 Content ABG Base Excess Carlos Test Carboxyhemoglobin Methemoglobin O2 Delivery Device Oxygen Flow Rate Vent Mode Vent Rate Mechanical Rate PEEP Pressure Support Vent Sodium Potassium Chloride Carbon Dioxide Anion Gap BUN Creatinine Est GFR (CKD-EPI)AfAm Est GFR (CKD-EPI)NonAf POC Glucometer Random Glucose Calcium Phosphorus Magnesium Total Bilirubin AST ALT Alkaline Phosphatase Total Protein Albumin Serum , Qual Negative Urine Color Yellow Urine Appearance Cloudy Urine pH 6.0 Ur Specific [place] 1.015 Urine Protein 1+ H Urine Glucose (UA) 3+ H Urine Ketones Negative Urine Blood Negative Urine Nitrite Positive H Urine Bilirubin Negative Urine Urobilinogen 0.2 Ur Leukocyte Esterase Negative Urine WBC (Auto) 6 Urine RBC (Auto) 3 Urine Casts (Auto) 8 U Epithel Cells (Auto) 6.8 U Sm Round Cell (Auto) Present Urine Bacteria (Auto) >9000 Salicylates Opiates Screen Negative Methadone Screen Negative Acetaminophen Barbiturate Screen Negative Phencyclidine Screen Negative Ur Amphetamines Screen Negative MDMA (Ecstasy) Screen Negative Benzodiazepines Screen Negative Cocaine Screen Positive A* U Marijuana (THC) Screen Positive A* Alcohol, Quantitative 10/02/19 10/02/19 10/02/19 03:10 03:10 03:10 WBC 14.4 H RBC 4.51 Hgb 13.0 Hct 39.6 D MCV 87.9 MCH 28.8 MCHC 32.7 RDW 14.9 Plt Count 291 D MPV 10.2 Absolute Neuts (auto) 12.8 H Neutrophils % 88.9 H D Lymphocytes % 4.8 L D Monocytes % 5.9 Eosinophils % 0.1 D Basophils % 0.3 Nucleated RBC % 0 PT with INR INR PTT (Actin FS) Anticoagulation Therapy Puncture Site ABG pH ABG pCO2 at Pt Temp ABG pO2 at Pt Temp ABG HCO3 ABG O2 Sat (Measured) ABG O2 Content ABG Base Excess Carlos Test Carboxyhemoglobin Methemoglobin O2 Delivery Device Oxygen Flow Rate Vent Mode Vent Rate Mechanical Rate PEEP Pressure Support Vent Sodium Cancelled 139 Potassium Cancelled 3.8 Chloride Cancelled 105 Carbon Dioxide Cancelled 27 Anion Gap Cancelled 7 L BUN Cancelled 12.1 Creatinine Cancelled 0.7 Est GFR (CKD-EPI)AfAm Cancelled 141.54 Est GFR (CKD-EPI)NonAf Cancelled 122.12 POC Glucometer Random Glucose Cancelled 77 Calcium Cancelled 8.5 Phosphorus Cancelled 4.0 Magnesium Cancelled 2.3 Total Bilirubin Cancelled 0.1 L AST Cancelled 54 H ALT Cancelled 44 Alkaline Phosphatase Cancelled 102 Total Protein Cancelled 7.2 Albumin Cancelled 4.0 Serum , Qual Urine Color Urine Appearance Urine pH Ur Specific [place] Urine Protein Urine Glucose (UA) Urine Ketones Urine Blood Urine Nitrite Urine Bilirubin Urine Urobilinogen Ur Leukocyte Esterase Urine WBC (Auto) Urine RBC (Auto) Urine Casts (Auto) U Epithel Cells (Auto) U Sm Round Cell (Auto) Urine Bacteria (Auto) Salicylates Opiates Screen Methadone Screen Acetaminophen Barbiturate Screen Phencyclidine Screen Ur Amphetamines Screen MDMA (Ecstasy) Screen Benzodiazepines Screen Cocaine Screen U Marijuana (THC) Screen Alcohol, Quantitative < 3 10/02/19 05:03 WBC RBC Hgb Hct MCV MCH MCHC RDW Plt Count MPV Absolute Neuts (auto) Neutrophils % Lymphocytes % Monocytes % Eosinophils % Basophils % Nucleated RBC % PT with INR INR PTT (Actin FS) Anticoagulation Therapy No Result Required. Puncture Site Right radial ABG pH 7.35 ABG pCO2 at Pt Temp 47.2 H ABG pO2 at Pt Temp 62.9 L ABG HCO3 25.1 ABG O2 Sat (Measured) 90.6 L ABG O2 Content 15.1 ABG Base Excess -0.3 Carlos Test Positive Carboxyhemoglobin 1.3 Methemoglobin < 1.0 O2 Delivery Device Vent Oxygen Flow Rate 50% Vent Mode A/c Vent Rate 14 Mechanical Rate Yes PEEP 5.0 Pressure Support Vent 450 Sodium Potassium Chloride Carbon Dioxide Anion Gap BUN Creatinine Est GFR (CKD-EPI)AfAm Est GFR (CKD-EPI)NonAf POC Glucometer Random Glucose Calcium Phosphorus Magnesium Total Bilirubin AST ALT Alkaline Phosphatase Total Protein Albumin Serum , Qual Urine Color Urine Appearance Urine pH Ur Specific [place] Urine Protein Urine Glucose (UA) Urine Ketones Urine Blood Urine Nitrite Urine Bilirubin Urine Urobilinogen Ur Leukocyte Esterase Urine WBC (Auto) Urine RBC (Auto) Urine Casts (Auto) U Epithel Cells (Auto) U Sm Round Cell (Auto) Urine Bacteria (Auto) Salicylates Opiates Screen Methadone Screen Acetaminophen Barbiturate Screen Phencyclidine Screen Ur Amphetamines Screen MDMA (Ecstasy) Screen Benzodiazepines Screen Cocaine Screen U Marijuana (THC) Screen Alcohol, Quantitative ASSESSMENT/PLAN: 24y/o F with hx of polysubstance abuse (heroin, cocaine, benzos (xanax)) recent discharge from rehab (1 month ago)was brought in by EMS for drug overdose. AMS 2/2 toxic metabolic syndrome most likely due to drug overdose Utox + cocaine and marijuana family endorsed heroin use with benzo around 8pm last night pt intubated via RSI for respiratory support and airway protection Poison control contacted and advised to give supportive care and sedation with propofol if needed pt currently on propofol 8 mcg/kg/min protonix for stress ulcers addiction medicine Dr Berrios consulted NS@ 75cc/h Leukocytosis with no clear etiology UA with just bacteria, and 3+ nitrites , though afebrile CXR no signs of PNA f/u blood cultures pt has history of IVDU Vanco and zosyn ID Dr Amos consulted FEN NS @ 42 monitor lytes NPO DVT lovenox daily Admitted to ICU Visit type - Emergency Visit Emergency Visit: Yes ED Registration Date: 10/02/19 Care time: The patient presented to the Emergency Department on the above date and was hospitalized for further evaluation of their emergent condition. - New Patient This patient is new to me today: No - Critical Care Critical Care patient: Yes Total Critical Care Time (in minutes): 35 Critical Care Statement: The care of this patient involved high complexity decision making to prevent further life threatening deterioration of the patient 's condition and/or to evaluate & treat vital organ system(s) failure or risk of failure. ATTENDING PHYSICIAN STATEMENT I saw and evaluated the patient. I reviewed the resident's note and discussed the case with the resident. I agree with the resident's findings and plan as documented. SUBJECTIVE: OBJECTIVE: ASSESSMENT AND PLAN:
[2019-10-02] MEDS ORDERED: VANCOMYCIN 1,000 MG in DEXTROSE 5%-WATER - 250 ML IVPB SCH (06:30)
[2019-10-02] MEDS ORDERED: VANCOMYCIN 1 GRAM (PRE-DOCKED) 1,000 MG/250 ML BAG IVPB ONE (06:45)
[2019-10-02 07:18] LABS: ARTERIAL BLD GAS O2 SATURATION 99.5 % (95-98); ARTERIAL BLOOD GAS BASE EXCESS 1.6 meq/l (-2-2); ARTERIAL BLOOD GAS PO2 179 mmHg (80-100); ARTERIAL BLOOD GAS pH 7.47 (7.35-7.45)
[2019-10-02 07:20] LABS: ALLENS TEST POSITIVE
[2019-10-02 07:24] LABS: MAGNESIUM 2.3 mg/dL (1.8-2.4); PHOSPHOROUS 2.2 mg/dL (2.5-4.9)
[2019-10-02] MEDS ORDERED: PT OWN MED DRAWER 7, Y5N ONE (08:25)
[2019-10-02] MEDS ORDERED: POTASSIUM PHOSPHATE 30 MM in SODIUM CHLORIDE 250 ML IVPB ONE (09:00)
--- NOTE | 2019-10-02 09:28 | EKG ---
Test Reason : Blood Pressure : / mmHG Vent. Rate : 110 BPM Atrial Rate : 110 BPM P-R Int : 142 ms QRS Dur : 080 ms QT Int : 338 ms P-R-T Axes : 045 082 048 degrees QTc Int : 457 ms SINUS TACHYCARDIA OTHERWISE NORMAL ECG NO PREVIOUS ECGS AVAILABLE Confirmed by Jose Armstrong MD ([id number]) on 10/02/2019 9:28:26 AM Referred By: Confirmed By:Jose Armstrong MD
[2019-10-02] MEDS ORDERED: PIPERACILLIN/TAZOB 3.375 GM 3.375 GM in DEXTROSE 5%-WATER - 50 ML IVPB SCH (10:00)
--- NOTE | 2019-10-02 11:19 | PN ---
Progress Note (short form) - Note Progress Note: ID CONSULT DICTATED
[2019-10-02] MEDS ORDERED: AMPICILLIN NA/SULBACTAM NA 1.5 GM in SODIUM CHLORIDE 100 ML IVPB SCH (11:30)
[2019-10-02] MEDS: ENOXAPARIN NA (PORCINE) 40 MG/0.4 ML DISP.SYRIN SQ SCH (11:33)
[2019-10-02] MEDS: PANTOPRAZOLE SODIUM 40 MG VIAL IVPUSH SCH (11:33)
[2019-10-02] MEDS: MUPIROCIN 2% TOPICAL OINTMENT FOR DECOLONIZATION NS SCH ×2 (11:33→23:23)
--- NOTE | 2019-10-02 11:53 | CONS ---
INFECTIOUS DISEASE CONSULTATION DATE OF CONSULTATION: DATE OF DICTATION: 10/02/2019 HISTORY: A 24-year-old female history of active polysubstance abuse, heroin, cocaine, benzodiazepines. Recent discharge from rehabilitation. Brought in by EMS for apparent drug overdose. She had apparently been using heroin and cocaine. She became unresponsive. She was given Narcan at the scene. She was evaluated in the emergency room where she was noted to have an elevated white blood cell count of 14.4. Chest x-ray was negative for acute infiltrate. She was intubated in the emergency room. She is presently in the intensive care unit on mechanical ventilation. She has been afebrile. Her HIV status is not known. She was empirically treated with vancomycin and Zosyn. LABORATORY DATA: White count 14.4, creatinine 0.7. Urinalysis, 6 white cells. Blood cultures pending. PHYSICAL EXAMINATION: General: She is sedated on the ventilator. Vital Signs: Temperature 98.1, blood pressure 108/68, pulse 91 regular, respirations 16 per minute. HEENT: Sclerae anicteric. Patient is orally intubated. Heart: Sounds S1, S2. Lungs: Air entry bilaterally. Abdomen: Soft and nontender. Extremities: Negative for edema. No evidence of phlebitis or skin infection secondary to injection drug use on extremities. IMPRESSION: 1. Status post drug overdose. 2. Respiratory failure. 3. Leukocytosis. PLAN: Would empirically cover for possible aspiration with Unasyn pending cultures. Should patient develop fever or persistent elevated white blood cell count, would add vancomycin for coverage of staph in light of history of injection drug use. Obtain HIV test. Thank you for the kind referral. ZEINAB SCHULTZ M.D. [id number]
--- NOTE | 2019-10-02 12:19 | ECHO ---
Name: MARIO, YAYA Exam:Adult Echocardiogram Study Date: 10/02/2019 08:29 AM Age: 24 yrs Reason For Study: IVDU Height: 61 in Weight: 120 lb BSA: 1.5 m2 MMode/2D Measurements & Calculations IVSd: 0.80 cm Ao root diam: 2.5 cm LVIDd: 3.8 cm LA dimension: 2.3 cm LVIDs: 2.6 cm LVPWd: 0.87 cm EDV(Teich): 61.3 ml LVOT diam: 2.0 cm ESV(Teich): 24.1 ml LAV (MOD-bp): 26.1 ml Doppler Measurements & Calculations MV E max go: 44.6 cm/sec Ao V2 max: 104.5 cm/sec MV A max go: 43.7 cm/sec Ao max P.4 mmHg MV E/A: 1.0 MV dec time: 0.17 sec GUY(V,D): 2.5 cm2 LV V1 max P.9 mmHg TR max go: 162.2 cm/sec LV V1 max: 84.9 cm/sec TR max P.8 mmHg PA V2 max: 63.8 cm/sec Med Peak E' Go: 14.3 cm/sec PA max P.6 mmHg Med E/e': 3.1 Lat Peak E' Go: 14.4 cm/sec Lat E/e': 3.1 PI Vmax: 127.6 cm/sec Procedure A two-dimensional transthoracic echocardiogram with color flow and Doppler was performed. The patient was in normal sinus rhythm during the exam. Left Ventricle The left ventricular size, thickness and function are normal. The left ventricular ejection fraction is normal. Ejection Fraction = 60%. The transmitral spectral Doppler flow pattern is normal for age. Right Ventricle The right ventricle is normal size. The right ventricular systolic function is normal. Atria Normal left and right atrial size and function. Mitral Valve There is mild mitral valve thickening. There is no vegetation seen on the mitral valve. There is trac e mitral regurgitation. Tricuspid Valve The tricuspid valve is normal. There is no tricuspid valve vegetation. There is mild tricuspid regurg itation. Right ventricular systolic pressure is normal. Aortic Valve The aortic valve is normal in structure and function. There is no aortic valvular vegetation. No aort ic regurgitation is present. Pulmonic Valve The pulmonic valve leaflets are thin and pliable; valve motion is normal. There is no vegetation on t he pulmonic valve. Trace pulmonic valvular regurgitation. Great Vessels The aortic root is normal size. Pericardium/Pleura There is no pericardial effusion. Interpretation Summary The left ventricular size, thickness and function are normal The left ventricular ejection fraction is normal. The right ventricular systolic function is normal. There is mild mitral valve thickening. There is trace mitral regurgitation. There is mild tricuspid regurgitation. Trace pulmonic valvular regurgitation. There is no pericardial effusion. MD Stef Pedroza 10/02/2019 12:18 PM
--- NOTE | 2019-10-02 13:24 | PN ---
Teaching Attending Note Name of Resident: Rogelio Holland ATTENDING PHYSICIAN STATEMENT I saw and evaluated the patient. I reviewed the resident's note and discussed the case with the resident. I agree with the resident's findings and plan as documented. SUBJECTIVE: Pt seen and examined in the ICU. Intubated, arousable off sedation. Tolerated CPAP/PS trials and subsequently extubated during rounds. States she does not remember the events leading up to hospitalization. OBJECTIVE: Vital Signs Period Temp Pulse Resp BP Sys/Calderon Pulse Ox Last 24 Hr 97.9 F-98.7 F 80-127 16-20 88-133/57-83 95-100 Intake & Output 09/29/19 09/30/19 10/01/19 10/02/19 23:59 23:59 23:59 23:59 Intake Total 1050 Output Total 750 Balance 300 Weight 54.488 kg Gen: extubated Heart: RRR Lung: decreased breath sounds at the bases Abd: soft, nontender Ext: no edema CBC, BMP 10/02/19 03:10 10/02/19 03:10 Active Medications Chlorhexidine Gluconate (Hibiclens For Decolonization -) 1 applic TP HS [facility] Enoxaparin Sodium (Lovenox -) 40 mg SQ DAILY [facility] Last Admin: 10/02/19 11:33 Dose: 40 mg Propofol (Diprivan -) 1,000,000 mcg in 100 mls @ 1.429 mls/hr IVPB TITR [facility]; Protocol Last Titration: 10/02/19 07:45 Dose: 15 mcg/kg/min, 4.286 mls/hr Sodium Chloride (Normal Saline -) 1,000 mls @ 75 mls/hr IV ASDIR [facility] Last Admin: 10/02/19 06:48 Dose: 75 mls/hr Potassium Phosphate 30 mm/ (Sodium Chloride) 260 mls @ 43.33 mls/hr IVPB ONCE ONE Stop: 10/02/19 15:00 Last Admin: 10/02/19 10:17 Dose: 43.33 mls/hr Ampicillin Sodium/Sulbactam (Sodium 1.5 gm/ Sodium Chloride) 100 mls @ 200 mls/ hr IVPB Q6H-IV [facility] Mupirocin (Bactroban Ointment (For Decolonization) -) 1 applic NS BID [facility] Stop: 10/07/19 09:59 Last Admin: 10/02/19 11:33 Dose: 1 applic Pantoprazole Sodium (Protonix Iv) 40 mg IVPUSH DAILY [facility] Last Admin: 10/02/19 11:33 Dose: 40 mg ASSESSMENT AND PLAN: Drug Overdose s/p Acute Respiratory Failure Polysubstance Abuse - pt extubated - aspiration precautions - O2 to keep SpO2 >90% - IVF - can likely monitor off antibiotics - DVT prophylaxis - can monitor on floor
[2019-10-02] MEDS ORDERED: AMPICILLIN NA/SULBACTAM NA 1.5 GM VIAL ONE ×2 (14:43→20:31)
[2019-10-02] MEDS ORDERED: SODIUM CHLORIDE 100 ML IVPB ONE ×2 (14:43→20:31)
[2019-10-02] MEDS: AMPICILLIN NA/SULBACTAM NA 1.5 GM in SODIUM CHLORIDE 100 ML IVPB SCH ×2 (14:51→20:33)
--- NOTE | 2019-10-02 17:09 | PN ---
Physical Exam: SUBJECTIVE: Patient seen and examined in the morning. Patient was intubated and admitted to the ICU overnight. She had no events on cardiac monitoring. Patient was initially sedated with propofol. Propofol was stopped and patient was extubated in the morning. No complaints. OBJECTIVE: Vital Signs Period Temp Pulse Resp BP Sys/Calderon Pulse Ox Last 24 Hr 97.8 F-99.2 F 80-127 11-20 88-133/57-83 95-100 GENERAL: The patient is drowsy but arousable. HEAD: Normal with no signs of trauma. EYES: PERRLA, EOMI. ENT: Moist mucus membranes. NECK: Trachea midline, full range of motion, supple. LUNGS: Breath sounds equal, clear to auscultation bilaterally, no wheezes, no crackles, no accessory muscle use. HEART: Tachycardic, S1, S2 without murmur, rub or gallop. ABDOMEN: Soft, nontender, nondistended, normoactive bowel sounds, no guarding, no rebound, no hepatosplenomegaly, no masses. EXTREMITIES: 2+ pulses, warm, well-perfused, no edema. NEUROLOGICAL: Cranial nerves II through XII grossly intact. Normal speech, gait not observed. PSYCH: Normal mood, normal affect. SKIN: Warm, dry, normal turgor, no rashes or lesions noted. No track sam noted Laboratory Results - last 24 hr 10/02/19 10/02/19 10/02/19 02:25 03:10 03:10 WBC RBC Hgb Hct MCV MCH MCHC RDW Plt Count MPV Absolute Neuts (auto) Neutrophils % Lymphocytes % Monocytes % Eosinophils % Basophils % Nucleated RBC % PT with INR 11.00 INR 0.93 PTT (Actin FS) 31.1 Anticoagulation Therapy Puncture Site ABG pH ABG pCO2 at Pt Temp ABG pO2 at Pt Temp ABG HCO3 ABG O2 Sat (Measured) ABG O2 Content ABG Base Excess Carlos Test Carboxyhemoglobin Methemoglobin O2 Delivery Device Oxygen Flow Rate Vent Mode Vent Rate Mechanical Rate PEEP Pressure Support Vent Sodium Potassium Chloride Carbon Dioxide Anion Gap BUN Creatinine Est GFR (CKD-EPI)AfAm Est GFR (CKD-EPI)NonAf POC Glucometer 80 Random Glucose Calcium Phosphorus Magnesium Total Bilirubin AST ALT Alkaline Phosphatase Creatine Kinase Creatine Kinase Index CK-MB (CK-2) Troponin I Total Protein Albumin Serum , Qual Urine Color Urine Appearance Urine pH Ur Specific Igo Urine Protein Urine Glucose (UA) Urine Ketones Urine Blood Urine Nitrite Urine Bilirubin Urine Urobilinogen Ur Leukocyte Esterase Urine WBC (Auto) Urine RBC (Auto) Urine Casts (Auto) U Epithel Cells (Auto) U Sm Round Cell (Auto) Urine Bacteria (Auto) Salicylates < 1.7 L Opiates Screen Methadone Screen Acetaminophen <2.0 Barbiturate Screen Phencyclidine Screen Ur Amphetamines Screen MDMA (Ecstasy) Screen Benzodiazepines Screen Cocaine Screen U Marijuana (THC) Screen Alcohol, Quantitative 10/02/19 10/02/19 10/02/19 03:10 03:10 03:10 WBC RBC Hgb Hct MCV MCH MCHC RDW Plt Count MPV Absolute Neuts (auto) Neutrophils % Lymphocytes % Monocytes % Eosinophils % Basophils % Nucleated RBC % PT with INR INR PTT (Actin FS) Anticoagulation Therapy Puncture Site ABG pH ABG pCO2 at Pt Temp ABG pO2 at Pt Temp ABG HCO3 ABG O2 Sat (Measured) ABG O2 Content ABG Base Excess Carlos Test Carboxyhemoglobin Methemoglobin O2 Delivery Device Oxygen Flow Rate Vent Mode Vent Rate Mechanical Rate PEEP Pressure Support Vent Sodium Potassium Chloride Carbon Dioxide Anion Gap BUN Creatinine Est GFR (CKD-EPI)AfAm Est GFR (CKD-EPI)NonAf POC Glucometer Random Glucose Calcium Phosphorus Magnesium Total Bilirubin AST ALT Alkaline Phosphatase Creatine Kinase Creatine Kinase Index CK-MB (CK-2) Troponin I Total Protein Albumin Serum , Qual Negative Urine Color Yellow Urine Appearance Cloudy Urine pH 6.0 Ur Specific Igo 1.015 Urine Protein 1+ H Urine Glucose (UA) 3+ H Urine Ketones Negative Urine Blood Negative Urine Nitrite Positive H Urine Bilirubin Negative Urine Urobilinogen 0.2 Ur Leukocyte Esterase Negative Urine WBC (Auto) 6 Urine RBC (Auto) 3 Urine Casts (Auto) 8 U Epithel Cells (Auto) 6.8 U Sm Round Cell (Auto) Present Urine Bacteria (Auto) >9000 Salicylates Opiates Screen Negative Methadone Screen Negative Acetaminophen Barbiturate Screen Negative Phencyclidine Screen Negative Ur Amphetamines Screen Negative MDMA (Ecstasy) Screen Negative Benzodiazepines Screen Negative Cocaine Screen Positive A* U Marijuana (THC) Screen Positive A* Alcohol, Quantitative 10/02/19 10/02/19 10/02/19 03:10 03:10 03:10 WBC 14.4 H RBC 4.51 Hgb 13.0 Hct 39.6 D MCV 87.9 MCH 28.8 MCHC 32.7 RDW 14.9 Plt Count 291 D MPV 10.2 Absolute Neuts (auto) 12.8 H Neutrophils % 88.9 H D Lymphocytes % 4.8 L D Monocytes % 5.9 Eosinophils % 0.1 D Basophils % 0.3 Nucleated RBC % 0 PT with INR INR PTT (Actin FS) Anticoagulation Therapy Puncture Site ABG pH ABG pCO2 at Pt Temp ABG pO2 at Pt Temp ABG HCO3 ABG O2 Sat (Measured) ABG O2 Content ABG Base Excess Carlos Test Carboxyhemoglobin Methemoglobin O2 Delivery Device Oxygen Flow Rate Vent Mode Vent Rate Mechanical Rate PEEP Pressure Support Vent Sodium Cancelled 139 Potassium Cancelled 3.8 Chloride Cancelled 105 Carbon Dioxide Cancelled 27 Anion Gap Cancelled 7 L BUN Cancelled 12.1 Creatinine Cancelled 0.7 Est GFR (CKD-EPI)AfAm Cancelled 141.54 Est GFR (CKD-EPI)NonAf Cancelled 122.12 POC Glucometer Random Glucose Cancelled 77 Calcium Cancelled 8.5 Phosphorus Cancelled 4.0 Magnesium Cancelled 2.3 Total Bilirubin Cancelled 0.1 L AST Cancelled 54 H ALT Cancelled 44 Alkaline Phosphatase Cancelled 102 Creatine Kinase Creatine Kinase Index CK-MB (CK-2) Troponin I Total Protein Cancelled 7.2 Albumin Cancelled 4.0 Serum , Qual Urine Color Urine Appearance Urine pH Ur Specific Igo Urine Protein Urine Glucose (UA) Urine Ketones Urine Blood Urine Nitrite Urine Bilirubin Urine Urobilinogen Ur Leukocyte Esterase Urine WBC (Auto) Urine RBC (Auto) Urine Casts (Auto) U Epithel Cells (Auto) U Sm Round Cell (Auto) Urine Bacteria (Auto) Salicylates Opiates Screen Methadone Screen Acetaminophen Barbiturate Screen Phencyclidine Screen Ur Amphetamines Screen MDMA (Ecstasy) Screen Benzodiazepines Screen Cocaine Screen U Marijuana (THC) Screen Alcohol, Quantitative < 3 10/02/19 10/02/19 10/02/19 05:03 06:15 06:32 WBC RBC Hgb Hct MCV MCH MCHC RDW Plt Count MPV Absolute Neuts (auto) Neutrophils % Lymphocytes % Monocytes % Eosinophils % Basophils % Nucleated RBC % PT with INR INR PTT (Actin FS) Anticoagulation Therapy No Result Required. Puncture Site Right radial Left radial ABG pH 7.35 7.47 H ABG pCO2 at Pt Temp 47.2 H 34.0 L ABG pO2 at Pt Temp 62.9 L 179 H ABG HCO3 25.1 24.5 ABG O2 Sat (Measured) 90.6 L 99.5 H ABG O2 Content 15.1 15.2 ABG Base Excess -0.3 1.6 Carlos Test Positive Positive Carboxyhemoglobin 1.3 1.0 Methemoglobin < 1.0 < 1.0 O2 Delivery Device Vent Vent Oxygen Flow Rate 50% 50% Vent Mode A/c A/c Vent Rate 14 16 Mechanical Rate Yes Yes PEEP 5.0 5.0 Pressure Support Vent 450 450 Sodium Potassium Chloride Carbon Dioxide Anion Gap BUN Creatinine Est GFR (CKD-EPI)AfAm Est GFR (CKD-EPI)NonAf POC Glucometer Random Glucose Calcium Phosphorus 2.2 L Magnesium 2.3 Total Bilirubin AST ALT Alkaline Phosphatase Creatine Kinase 256 H Creatine Kinase Index 1.0 CK-MB (CK-2) 2.6 Troponin I 0.03 Total Protein Albumin Serum , Qual Urine Color Urine Appearance Urine pH Ur Specific Igo Urine Protein Urine Glucose (UA) Urine Ketones Urine Blood Urine Nitrite Urine Bilirubin Urine Urobilinogen Ur Leukocyte Esterase Urine WBC (Auto) Urine RBC (Auto) Urine Casts (Auto) U Epithel Cells (Auto) U Sm Round Cell (Auto) Urine Bacteria (Auto) Salicylates Opiates Screen Methadone Screen Acetaminophen Barbiturate Screen Phencyclidine Screen Ur Amphetamines Screen MDMA (Ecstasy) Screen Benzodiazepines Screen Cocaine Screen U Marijuana (THC) Screen Alcohol, Quantitative Active Medications Generic Name Dose Route Start Last Admin Trade Name Freq PRN Reason Stop Dose Admin Chlorhexidine Gluconate 1 applic 10/02/19 22:00 Hibiclens For Decolonization - TP HS [facility] Enoxaparin Sodium 40 mg 10/02/19 10:00 10/02/19 11:33 Lovenox - SQ 40 mg DAILY [facility] Administration Propofol 1,000,000 mcg in 100 mls @ 1.429 mls/hr 10/02/19 05:00 10/02/19 09: 00 Diprivan - IVPB 0 mcg/kg/min TITR [facility] 0 mls/hr Titration Protocol 5 MCG/KG/MIN Sodium Chloride 1,000 mls @ 75 mls/hr 10/02/19 06:15 10/02/19 06:48 Normal Saline - IV 75 mls/hr ASDIR [facility] Administration Ampicillin Sodium/Sulbactam 100 mls @ 200 mls/hr 10/02/19 11:32 10/02/19 14: 51 Sodium 1.5 gm/ Sodium Chloride IVPB 200 mls/hr Q6H-IV [facility] Administration Mupirocin 1 applic 10/02/19 10:00 10/02/19 11:33 Bactroban Ointment (For Decolonization) - NS 10/07/19 09:59 1 applic BID [facility] Administration Pantoprazole Sodium 40 mg 10/02/19 10:00 10/02/19 11:33 Protonix Iv IVPUSH 40 mg DAILY [facility] Administration ASSESSMENT/PLAN: 24F of PSA( heroin, cocaine, xanax), recent discharge from rehab was brought in by EMS for drug overdose. Patient admits to sniffing one bag of heroin the day of admission. Was intubated for airway protection, but was extubated in ICU. Neuro/Psych -Patient was initially AMS due to acute toxic metabolic syndrome secondary to drug overdose. -Was intubated and sedated, now extubated and AAOx3 -COWS score 2. -Urine drug screen positive for cocaine and marijuana. patient denies any substance use except heroin from yesterday. -Head CT negative Pulm -Was extubated to venti mask, patient is now satting 100% on RA. -Chest X-Ray was negative for infiltrates or effusions. Cardiovascular -EKG showed sinus tachy, QTC 457. -Troponins negative. -HD stable. ID -urine positive for nitrites, negative for LE. -Ceftriaxone give, Vanc and Zoysn given. -Coverage with Unasyn -ID consulted, appreciate recs F: Oral Hydration E: Monitor CMP N: Regular Diet DVT PPx: Heparin SubQ Visit type - Emergency Visit Emergency Visit: Yes ED Registration Date: 10/02/19 Care time: The patient presented to the Emergency Department on the above date and was hospitalized for further evaluation of their emergent condition. - New Patient This patient is new to me today: Yes Date on this admission: 10/02/19 - Critical Care Critical Care patient: Yes Total Critical Care Time (in minutes): 45 Critical Care Statement: The care of this patient involved high complexity decision making to prevent further life threatening deterioration of the patient 's condition and/or to evaluate & treat vital organ system(s) failure or risk of failure. ATTENDING PHYSICIAN STATEMENT I saw and evaluated the patient. I reviewed the resident's note and discussed the case with the resident. I agree with the resident's findings and plan as documented. SUBJECTIVE: OBJECTIVE: ASSESSMENT AND PLAN:
--- NOTE | 2019-10-02 19:09 | CON.PSY ---
Psychiatry Consult Chief Complaint: 24 Year old female with a long history of Substance abuse , recently discharged from [facility] apparantly dis COcaine with Fentanyl. [ patient is extubaterd. has seen a Psych and is on Prozac, Seroquel for Depression. - Previous Psychiatric Treatment Outpatient: Less than 6 mos ago Inpatient: One prior admission - Previous Substance Abuse Treatment Outpatient: Less than 6 mos ago Inpatient: 2 or more prior admissions - Reason for Previous Treatment Reason for Previous Treatment: Major Depression, Heroin or Other Narcotics - Current Medications Current Medications: Active Medications Chlorhexidine Gluconate (Hibiclens For Decolonization -) 1 applic TP HS [facility] Enoxaparin Sodium (Lovenox -) 40 mg SQ DAILY [facility] Last Admin: 10/02/19 11:33 Dose: 40 mg Fluoxetine HCl (Prozac -) 20 mg PO DAILY [facility] Sodium Chloride (Normal Saline -) 1,000 mls @ 75 mls/hr IV ASDIR [facility] Last Admin: 10/02/19 06:48 Dose: 75 mls/hr Ampicillin Sodium/Sulbactam (Sodium 1.5 gm/ Sodium Chloride) 100 mls @ 200 mls/ hr IVPB Q6H-IV [facility] Last Admin: 10/02/19 14:51 Dose: 200 mls/hr Mupirocin (Bactroban Ointment (For Decolonization) -) 1 applic NS BID [facility] Stop: 10/07/19 09:59 Last Admin: 10/02/19 11:33 Dose: 1 applic Pantoprazole Sodium (Protonix Iv) 40 mg IVPUSH DAILY [facility] Last Admin: 10/02/19 11:33 Dose: 40 mg - Allergies Allergies: Allergies Allergy/AdvReac Type Severity Reaction Status Date / Time No Known Allergies Allergy Verified 10/02/19 01:50 - Current Living Status Usual Living Arrangement: With Significant Other - Current Mental Status Evaluation Appearance: Well Groomed Attitude: Cooperative - Affect Affect: Full Range Appropriateness: Appropriate to Content - Mood Mood: Euthymic - Speech/Language Expressive: Coherent - Psychomotor Activity Psychomotor Activity: Normal - Thought Process Thought Process: Intact - Thought Content Hallucinations: Absent Delusions: Absent - Self Perception Self Perception: No Impairment - Cognition Attention: Alert Orientation: Time Memory, Immediate Recall: Intact Memory, Short Term: 3/3 Memory, Remote with Promptin/3 - Concentration Serial Sevens Intact: Yes Simple Calculations Intact: Yes - Abstraction Proverb Interpretation: Intact Judgement: Minimally Impaired - Insight Insight: Intact - Impulse Control Impulse Control: Minimally Impaired - Suicidal Ideation Suicidal Ideation: No - Homicidal Ideation Homicidal Ideation: No Assessment/Plan 1) d/c 1:1. 2) Patient is not Suicidal at this time. 3) start Prozac 20 mg po od. 4) Discharge when medically stable. 5) will follow up with her [facility] Psych.
[2019-10-02] MEDS ORDERED: CHLORHEXIDINE GLUCONATE 4% CLEANSER FOR DECOLONIZATION TP SCH (22:00)
--- NOTE | 2019-10-03 00:01 | PN ---
Teaching Attending Note Name of Resident: Jinny Odell ATTENDING PHYSICIAN STATEMENT I saw and evaluated the patient. I reviewed the resident's note and discussed the case with the resident. I agree with the resident's findings and plan as documented. 24 F h/o polysubstance abuse (heroin, cocaine, benzos (xanax)) recently discharged from rehab (1 month ago)was brought in by EMS for drug overdose and AMS. Per parents who called EMS, she was at a different location with her boyfriend when she used about 4 bags of heroin unknown mode of administration and benzos and cocaine of unknown amount. Patient was given 4mg intranasal narcan by her parents another 8-12mg by EMS slightly woke up but became lethargic by the time she reached the ED. Currently pt. intubated and mechanically ventilated, admitted to MICU service for acute hypercapneic respiratory failure 2/2 opioid/benzo overdose. GA intubated and mechanically ventilated, RAAS -2 HEENT NC/AT, EOMI, neck supple, ET+ Chest CTAB anteriorally CVS S1, S2+, RRR, no m/r/g Abd Soft, NT, ND, BS+ Ext No LE edema, no calf tenderness Vital Signs - 24 hr 10/02/19 10/02/19 10/02/19 01:15 02:27 03:01 Temperature 97.9 F Pulse Rate 102 H 127 H Pulse Rate [ 92 H Apical] Respiratory 17 16 16 Rate Blood Pressure 116/73 Blood Pressure 107/77 [Left Arm] O2 Sat by Pulse 100 98 100 Oximetry (%) 10/02/19 10/02/19 10/02/19 03:16 03:28 04:25 Temperature Pulse Rate Pulse Rate [ 99 H 84 Apical] Respiratory 16 16 16 Rate Blood Pressure Blood Pressure 133/77 120/83 [Left Arm] O2 Sat by Pulse 97 95 Oximetry (%) 10/02/19 10/02/19 10/02/19 04:30 05:45 06:00 Temperature 98.6 F Pulse Rate 89 86 Pulse Rate [ Apical] Respiratory 20 16 18 Rate Blood Pressure 110/67 92/59 L Blood Pressure [Left Arm] O2 Sat by Pulse 95 Oximetry (%) 10/02/19 10/02/19 10/02/19 07:00 07:49 07:57 Temperature 98.1 F Pulse Rate 82 Pulse Rate [ Apical] Respiratory 16 16 16 Rate Blood Pressure 88/57 L Blood Pressure [Left Arm] O2 Sat by Pulse 100 Oximetry (%) 10/02/19 10/02/19 10/02/19 08:00 08:25 08:40 Temperature 98.1 F Pulse Rate 84 80 Pulse Rate [ Apical] Respiratory 16 16 Rate Blood Pressure 97/62 Blood Pressure [Left Arm] O2 Sat by Pulse 100 Oximetry (%) 10/02/19 10/02/19 10/02/19 10:00 12:00 13:00 Temperature 98.7 F 98.2 F Pulse Rate 91 H 112 H 108 H Pulse Rate [ Apical] Respiratory 16 18 17 Rate Blood Pressure 108/68 114/65 117/66 Blood Pressure [Left Arm] O2 Sat by Pulse Oximetry (%) 10/02/19 10/02/19 10/02/19 14:00 16:00 18:00 Temperature 99.2 F 97.8 F Pulse Rate 105 H 97 H 102 H Pulse Rate [ Apical] Respiratory 11 19 16 Rate Blood Pressure 122/65 117/70 107/75 Blood Pressure [Left Arm] O2 Sat by Pulse Oximetry (%) 10/02/19 10/02/19 19:54 23:00 Temperature 98 F 97.9 F Pulse Rate 98 H 97 H Pulse Rate [ Apical] Respiratory 16 18 Rate Blood Pressure 108/75 112/65 Blood Pressure [Left Arm] O2 Sat by Pulse Oximetry (%) Laboratory Results - last 24 hr 10/02/19 10/02/19 10/02/19 02:25 03:10 03:10 WBC RBC Hgb Hct MCV MCH MCHC RDW Plt Count MPV Absolute Neuts (auto) Neutrophils % Lymphocytes % Monocytes % Eosinophils % Basophils % Nucleated RBC % PT with INR 11.00 INR 0.93 PTT (Actin FS) 31.1 Anticoagulation Therapy Puncture Site ABG pH ABG pCO2 at Pt Temp ABG pO2 at Pt Temp ABG HCO3 ABG O2 Sat (Measured) ABG O2 Content ABG Base Excess Carlos Test Carboxyhemoglobin Methemoglobin O2 Delivery Device Oxygen Flow Rate Vent Mode Vent Rate Mechanical Rate PEEP Pressure Support Vent Sodium Potassium Chloride Carbon Dioxide Anion Gap BUN Creatinine Est GFR (CKD-EPI)AfAm Est GFR (CKD-EPI)NonAf POC Glucometer 80 Random Glucose Calcium Phosphorus Magnesium Total Bilirubin AST ALT Alkaline Phosphatase Creatine Kinase Creatine Kinase Index CK-MB (CK-2) Troponin I Total Protein Albumin Serum , Qual Urine Color Urine Appearance Urine pH Ur Specific [place] Urine Protein Urine Glucose (UA) Urine Ketones Urine Blood Urine Nitrite Urine Bilirubin Urine Urobilinogen Ur Leukocyte Esterase Urine WBC (Auto) Urine RBC (Auto) Urine Casts (Auto) U Epithel Cells (Auto) U Sm Round Cell (Auto) Urine Bacteria (Auto) Salicylates < 1.7 L Opiates Screen Methadone Screen Acetaminophen <2.0 Barbiturate Screen Phencyclidine Screen Ur Amphetamines Screen MDMA (Ecstasy) Screen Benzodiazepines Screen Cocaine Screen U Marijuana (THC) Screen Alcohol, Quantitative 10/02/19 10/02/19 10/02/19 03:10 03:10 03:10 WBC RBC Hgb Hct MCV MCH MCHC RDW Plt Count MPV Absolute Neuts (auto) Neutrophils % Lymphocytes % Monocytes % Eosinophils % Basophils % Nucleated RBC % PT with INR INR PTT (Actin FS) Anticoagulation Therapy Puncture Site ABG pH ABG pCO2 at Pt Temp ABG pO2 at Pt Temp ABG HCO3 ABG O2 Sat (Measured) ABG O2 Content ABG Base Excess Carlos Test Carboxyhemoglobin Methemoglobin O2 Delivery Device Oxygen Flow Rate Vent Mode Vent Rate Mechanical Rate PEEP Pressure Support Vent Sodium Potassium Chloride Carbon Dioxide Anion Gap BUN Creatinine Est GFR (CKD-EPI)AfAm Est GFR (CKD-EPI)NonAf POC Glucometer Random Glucose Calcium Phosphorus Magnesium Total Bilirubin AST ALT Alkaline Phosphatase Creatine Kinase Creatine Kinase Index CK-MB (CK-2) Troponin I Total Protein Albumin Serum , Qual Negative Urine Color Yellow Urine Appearance Cloudy Urine pH 6.0 Ur Specific [place] 1.015 Urine Protein 1+ H Urine Glucose (UA) 3+ H Urine Ketones Negative Urine Blood Negative Urine Nitrite Positive H Urine Bilirubin Negative Urine Urobilinogen 0.2 Ur Leukocyte Esterase Negative Urine WBC (Auto) 6 Urine RBC (Auto) 3 Urine Casts (Auto) 8 U Epithel Cells (Auto) 6.8 U Sm Round Cell (Auto) Present Urine Bacteria (Auto) >9000 Salicylates Opiates Screen Negative Methadone Screen Negative Acetaminophen Barbiturate Screen Negative Phencyclidine Screen Negative Ur Amphetamines Screen Negative MDMA (Ecstasy) Screen Negative Benzodiazepines Screen Negative Cocaine Screen Positive A* U Marijuana (THC) Screen Positive A* Alcohol, Quantitative 10/02/19 10/02/19 10/02/19 03:10 03:10 03:10 WBC 14.4 H RBC 4.51 Hgb 13.0 Hct 39.6 D MCV 87.9 MCH 28.8 MCHC 32.7 RDW 14.9 Plt Count 291 D MPV 10.2 Absolute Neuts (auto) 12.8 H Neutrophils % 88.9 H D Lymphocytes % 4.8 L D Monocytes % 5.9 Eosinophils % 0.1 D Basophils % 0.3 Nucleated RBC % 0 PT with INR INR PTT (Actin FS) Anticoagulation Therapy Puncture Site ABG pH ABG pCO2 at Pt Temp ABG pO2 at Pt Temp ABG HCO3 ABG O2 Sat (Measured) ABG O2 Content ABG Base Excess Carlos Test Carboxyhemoglobin Methemoglobin O2 Delivery Device Oxygen Flow Rate Vent Mode Vent Rate Mechanical Rate PEEP Pressure Support Vent Sodium Cancelled 139 Potassium Cancelled 3.8 Chloride Cancelled 105 Carbon Dioxide Cancelled 27 Anion Gap Cancelled 7 L BUN Cancelled 12.1 Creatinine Cancelled 0.7 Est GFR (CKD-EPI)AfAm Cancelled 141.54 Est GFR (CKD-EPI)NonAf Cancelled 122.12 POC Glucometer Random Glucose Cancelled 77 Calcium Cancelled 8.5 Phosphorus Cancelled 4.0 Magnesium Cancelled 2.3 Total Bilirubin Cancelled 0.1 L AST Cancelled 54 H ALT Cancelled 44 Alkaline Phosphatase Cancelled 102 Creatine Kinase Creatine Kinase Index CK-MB (CK-2) Troponin I Total Protein Cancelled 7.2 Albumin Cancelled 4.0 Serum , Qual Urine Color Urine Appearance Urine pH Ur Specific [place] Urine Protein Urine Glucose (UA) Urine Ketones Urine Blood Urine Nitrite Urine Bilirubin Urine Urobilinogen Ur Leukocyte Esterase Urine WBC (Auto) Urine RBC (Auto) Urine Casts (Auto) U Epithel Cells (Auto) U Sm Round Cell (Auto) Urine Bacteria (Auto) Salicylates Opiates Screen Methadone Screen Acetaminophen Barbiturate Screen Phencyclidine Screen Ur Amphetamines Screen MDMA (Ecstasy) Screen Benzodiazepines Screen Cocaine Screen U Marijuana (THC) Screen Alcohol, Quantitative < 3 10/02/19 10/02/19 10/02/19 05:03 06:15 06:32 WBC RBC Hgb Hct MCV MCH MCHC RDW Plt Count MPV Absolute Neuts (auto) Neutrophils % Lymphocytes % Monocytes % Eosinophils % Basophils % Nucleated RBC % PT with INR INR PTT (Actin FS) Anticoagulation Therapy No Result Required. Puncture Site Right radial Left radial ABG pH 7.35 7.47 H ABG pCO2 at Pt Temp 47.2 H 34.0 L ABG pO2 at Pt Temp 62.9 L 179 H ABG HCO3 25.1 24.5 ABG O2 Sat (Measured) 90.6 L 99.5 H ABG O2 Content 15.1 15.2 ABG Base Excess -0.3 1.6 Carlos Test Positive Positive Carboxyhemoglobin 1.3 1.0 Methemoglobin < 1.0 < 1.0 O2 Delivery Device Vent Vent Oxygen Flow Rate 50% 50% Vent Mode A/c A/c Vent Rate 14 16 Mechanical Rate Yes Yes PEEP 5.0 5.0 Pressure Support Vent 450 450 Sodium Potassium Chloride Carbon Dioxide Anion Gap BUN Creatinine Est GFR (CKD-EPI)AfAm Est GFR (CKD-EPI)NonAf POC Glucometer Random Glucose Calcium Phosphorus 2.2 L Magnesium 2.3 Total Bilirubin AST ALT Alkaline Phosphatase Creatine Kinase 256 H Creatine Kinase Index 1.0 CK-MB (CK-2) 2.6 Troponin I 0.03 Total Protein Albumin Serum , Qual Urine Color Urine Appearance Urine pH Ur Specific [place] Urine Protein Urine Glucose (UA) Urine Ketones Urine Blood Urine Nitrite Urine Bilirubin Urine Urobilinogen Ur Leukocyte Esterase Urine WBC (Auto) Urine RBC (Auto) Urine Casts (Auto) U Epithel Cells (Auto) U Sm Round Cell (Auto) Urine Bacteria (Auto) Salicylates Opiates Screen Methadone Screen Acetaminophen Barbiturate Screen Phencyclidine Screen Ur Amphetamines Screen MDMA (Ecstasy) Screen Benzodiazepines Screen Cocaine Screen U Marijuana (THC) Screen Alcohol, Quantitative Current Medications Generic Name Dose Route Start Last Admin Trade Name Freq PRN Reason Stop Dose Admin Chlorhexidine Gluconate 1 applic 10/02/19 22:00 10/02/19 23:23 Hibiclens For Decolonization - TP Not Given HS ROSALIA Enoxaparin Sodium 40 mg 10/02/19 10:00 10/02/19 11:33 Lovenox - SQ 40 mg DAILY ROSALIA Administration Fluoxetine HCl 20 mg 10/03/19 10:00 Prozac - PO DAILY ROSALIA Ampicillin Sodium/Sulbactam 100 mls @ 200 mls/hr 10/02/19 11:32 10/02/19 20: 33 Sodium 1.5 gm/ Sodium Chloride IVPB 200 mls/hr Q6H-IV ROSALIA Administration Mupirocin 1 applic 10/02/19 10:00 10/02/19 23:23 Bactroban Ointment (For Decolonization) - NS 10/07/19 09:59 Not Given BID ROSALIA Pantoprazole Sodium 40 mg 10/02/19 10:00 10/02/19 11:33 Protonix Iv IVPUSH 40 mg DAILY ROSALIA Administration A/P: 24 F h/o PSA abuse, intubated and mechanically ventilated for ARF 2/2 AMS, PSA and high metabolic demand. Acute respiratory failure secondary to PSA overdose and metabolic demand Utox + cocaine and marijuana Family endorsed heroin use with benzo around 8pm last night Recommendations per poison control protonix for stress ulcers Addiction medicine Dr Berrios consulted Cont. IV hydration, obtain CK levels Consider psych evaluation when medically stable Leukocytosis with no clear etiology UA with just bacteria, and 3+ nitrites , though afebrile CXR no signs of PNA f/u blood cultures ?remote history of IVDA but no tram-track lines on exam Vanco and zosyn, obtain TTE ID Dr Amos consulted FEN NS @ 42 monitor lytes NPO DVT lovenox daily Admitted to ICU
[2019-10-03] MEDS ORDERED: AMPICILLIN NA/SULBACTAM NA 1.5 GM VIAL ONE ×4 (01:57→20:27)
[2019-10-03] MEDS ORDERED: SODIUM CHLORIDE 100 ML IVPB ONE ×4 (01:58→20:27)
[2019-10-03] MEDS: AMPICILLIN NA/SULBACTAM NA 1.5 GM in SODIUM CHLORIDE 100 ML IVPB SCH ×4 (02:24→21:05)
[2019-10-03] MEDS ORDERED: VANCOMYCIN 1,000 MG in DEXTROSE 5%-WATER - 250 ML IVPB SCH (06:45)
[2019-10-03 07:33] LABS: BASO % 0.4 % (0-2.0); EOS % 1.5 % (0-4.5); HEMOGLOBIN 11.4 GM/dL (10.7-15.3); LYMPH % 25.2 % (8-40); MCH 28.9 pg (25.7-33.7); MCHC 32.7 g/dl (32.0-36.0); MEAN CELL VOLUME 88.3 fl (80-96); MEAN PLT VOLUME 9.6 fl (7.5-11.1); MONO % 7.5 % (3.8-10.2); NEUT % 65.4 % (42.8-82.8); PLATELET COUNT 238 K/MM3 (134-434); RBC 3.96 M/mm3 (3.60-5.2); RDW 14.7 % (11.6-15.6); WHITE BLOOD COUNT 5.8 K/mm3 (4.0-10.0)
[2019-10-03 08:43] LABS: BILIRUBIN,TOTAL 0.3 mg/dL (0.2-1); BLOOD UREA NITROGEN 9.2 mg/dL (7-18); CALCIUM 8.4 mg/dL (8.5-10.1); CREATININE 0.8 mg/dL (0.55-1.3); POTASSIUM 3.7 mmol/L (3.5-5.1); TOT PROT 6.1 g/dl (6.4-8.2)
[2019-10-03] MEDS: ENOXAPARIN NA (PORCINE) 40 MG/0.4 ML DISP.SYRIN SQ SCH (09:41)
[2019-10-03] MEDS: PANTOPRAZOLE SODIUM 40 MG VIAL IVPUSH SCH (09:41)
[2019-10-03] MEDS: MUPIROCIN 2% TOPICAL OINTMENT FOR DECOLONIZATION NS SCH (09:42)
[2019-10-03] MEDS ORDERED: PIPERACILLIN/TAZOB 3.375 GM 3.375 GM in DEXTROSE 5%-WATER - 50 ML IVPB SCH (10:00)
[2019-10-03] MEDS ORDERED: FLUoxetine HCL 20 MG CAPSULE (FP) PO SCH (10:00)
--- NOTE | 2019-10-03 10:24 | PN ---
Progress Note (short form) - Note Progress Note: As per notes: Patient is a 24 F h/o polysubstance abuse (heroin, cocaine, benzos (xanax)) recently discharged from rehab (1 month ago)was brought in by EMS for drug overdose and AMS. as per notes: parents called EMS, she was at a different location with her boyfriend when she used about 4 bags of heroin unknown mode of administration and benzos and cocaine of unknown amount. Patient was given 4mg intranasal narcan by her parents another 8-12mg by EMS slightly woke up but became lethargic by the time she reached the ED. Patient is feeling depressed but looks comfortable . Vital Signs Temperature 97.3 F L 10/03/19 06:04 Pulse Rate 90 10/03/19 06:04 Respiratory Rate 18 10/03/19 06:04 Blood Pressure 103/62 10/03/19 06:04 O2 Sat by Pulse Oximetry (%) 100 10/02/19 21:00 GENERAL: The patient is awake, alert, and fully oriented, in no acute distress. HEAD: Normal with no signs of trauma. EYES: PERRL, extraocular movements intact, sclera anicteric, conjunctiva clear. ENT: Ears normal, oropharynx clear without exudates, moist mucous membranes. NECK: Trachea midline, full range of motion, supple. LUNGS: Breath sounds equal, clear to auscultation bilaterally, no wheezes, no crackles, no accessory muscle use. HEART: Regular rate and rhythm, S1, S2 without murmur, rub or gallop. ABDOMEN: Soft, nontender, nondistended, normoactive bowel sounds, no guarding, no rebound, no hepatosplenomegaly, no masses. EXTREMITIES: 2+ pulses, warm, well-perfused, no edema. NEUROLOGICAL: Cranial nerves II through XII grossly intact. Normal speech, gait not observed. PSYCH: Normal mood, normal affect. SKIN: Warm, dry, normal turgor, no rashes or lesions noted CBCD WBC 5.8 K/mm3 (4.0-10.0) 10/03/19 06:51 RBC 3.96 M/mm3 (3.60-5.2) 10/03/19 06:51 Hgb 11.4 GM/dL (10.7-15.3) 01/08/20 06:51 Hct 35.0 % (32.4-45.2) 10/03/19 06:51 MCV 88.3 fl (80-96) 10/03/19 06:51 MCHC 32.7 g/dl (32.0-36.0) 10/03/19 06:51 RDW 14.7 % (11.6-15.6) 10/03/19 06:51 Plt Count 238 K/MM3 (134-434) 10/03/19 06:51 MPV 9.6 fl (7.5-11.1) 10/03/19 06:51 CMP Sodium 140 mmol/L (136-145) 10/03/19 06:51 Potassium 3.7 mmol/L (3.5-5.1) 10/03/19 06:51 Chloride 105 mmol/L (98-107) 10/03/19 06:51 Carbon Dioxide 26 mmol/L (21-32) 10/03/19 06:51 Anion Gap 9 MMOL/L (8-16) 10/03/19 06:51 BUN 9.2 mg/dL (7-18) 10/03/19 06:51 Creatinine 0.8 mg/dL (0.55-1.3) 10/03/19 06:51 Random Glucose 103 mg/dL (74-106) 10/03/19 06:51 Calcium 8.4 mg/dL (8.5-10.1) L 10/03/19 06:51 Total Bilirubin 0.3 mg/dL (0.2-1) 10/03/19 06:51 AST 52 U/L (15-37) H 10/03/19 06:51 ALT 37 U/L (13-61) 10/03/19 06:51 Alkaline Phosphatase 77 U/L (45-117) 10/03/19 06:51 Total Protein 6.1 g/dl (6.4-8.2) L 10/03/19 06:51 Albumin 3.0 g/dl (3.4-5.0) L 10/03/19 06:51 CARDIAC ENZYMES Creatine Kinase 256 U/L (26-192) H 10/02/19 06:32 Troponin I 0.03 ng/ml (0.00-0.05) 10/02/19 06:32 Current Medications Generic Name Dose Route Start Last Admin Trade Name Freq PRN Reason Stop Dose Admin Enoxaparin Sodium 40 mg 10/02/19 10:00 10/03/19 09:41 Lovenox - SQ 40 mg DAILY ROSALIA Administration Fluoxetine HCl 20 mg 10/03/19 10:00 10/03/19 09:41 Prozac - PO 20 mg DAILY ROSALIA Administration Ampicillin Sodium/Sulbactam 100 mls @ 200 mls/hr 10/02/19 11:32 10/03/19 09: 41 Sodium 1.5 gm/ Sodium Chloride IVPB 200 mls/hr Q6H-IV ROSALIA Administration Pantoprazole Sodium 40 mg 10/02/19 10:00 10/03/19 09:41 Protonix Iv IVPUSH 40 mg DAILY ROSALIA Administration Home Medications Medication Instructions Recorded No Home Medications 0 dose .ROUTE UTDICT 02/26/14 Microbiology Urine Test Results Urine Color Yellow 10/02/19 03:10 Urine Appearance Cloudy 10/02/19 03:10 Urine pH 6.0 (5.0-8.0) 10/02/19 03:10 Ur Specific [place] 1.015 (1.010-1.035) 10/02/19 03:10 Urine Protein 1+ (NEGATIVE) H 10/02/19 03:10 Urine Glucose (UA) 3+ (NEGATIVE) H 10/02/19 03:10 Urine Ketones Negative (NEGATIVE) 10/02/19 03:10 Urine Blood Negative (NEGATIVE) 10/02/19 03:10 Urine Nitrite Positive (NEGATIVE) H 10/02/19 03:10 Urine Bilirubin Negative (NEGATIVE) 10/02/19 03:10 Ur Leukocyte Esterase Negative (NEGATIVE) 10/02/19 03:10 Microbiology 10/02/19 06:32 Blood - Peripheral Venous Blood Culture - Preliminary NO GROWTH OBTAINED AFTER 24 HOURS, INCUBATION TO CONTINUE FOR 4 DAYS. 10/02/19 06:26 Blood - Peripheral Venous Blood Culture - Preliminary NO GROWTH OBTAINED AFTER 24 HOURS, INCUBATION TO CONTINUE FOR 4 DAYS. CXR : no PNA Assessment and plan: Patient is a 24yo F with hx of PSA abuse s/p intubation due to AMS. patient is extubated now. # s/p intubation for Acute respiratory failure due to PSA overdose : Utox + cocaine and marijuana Addiction medicine Dr Berrios consulted, cont. IV hydration. #depression: As per pschy, dr eagle d/c 1:1. -Patient is not Suicidal at this time. - start Prozac 20 mg po od. - Discharge when medically stable. # acute Leukocytosis with no clear etiology on IV unasyn ; no growth so far , ID on the case , will wait for their recommendation. #Hx of Polysubastance abuse Laboratory Tests 10/02/19 03:10 Cocaine Screen Positive A* U Marijuana (THC) Screen Positive A* DVT: lovenox daily . Visit type - Emergency Visit Emergency Visit: Yes ED Registration Date: 10/02/19 Care time: The patient presented to the Emergency Department on the above date and was hospitalized for further evaluation of their emergent condition. - New Patient This patient is new to me today: Yes Date on this admission: 10/03/19 - Critical Care Critical Care patient: No - Discharge Referral Referred to [facility] Med [facility].: No
[2019-10-03 23:21] VITALS: BP 113/61; PULSE 97; TEMP 8
== END 2019-10-03 22:00 | disposition left against medical advice (07) | DRG 816 ==
LOC: JER 01:11 → JERBED 04:39 → JICU 05:32 → J7W 21:01
PROVIDERS: ADMIT Internal Medicine; ATTEND Internal Medicine
PROC: 5A1935Z Respiratory Ventilation, Less than 24 Consecutive Hours (ICD-10-PCS; principal; 2019-10-02)
PROC: 0CHY7BZ Insertion of Airway into Mouth and Throat, Via Natural or Artificial Opening (ICD-10-PCS; 2019-10-02)
DX: T40.1X1A Poisoning by heroin, accidental (unintentional), initial encounter (principal); G92 Toxic encephalopathy; F17.210 Nicotine dependence, cigarettes, uncomplicated; F12.10 Cannabis abuse, uncomplicated; F14.10 Cocaine abuse, uncomplicated; J96.01 Acute respiratory failure with hypoxia; D72.829 Elevated white blood cell count, unspecified; R41.82 Altered mental status, unspecified; Y92.098 Other place in other non-institutional residence as the place of occurrence of the external cause
CPT/HCPCS: 36415; 36600; 70450-TC; 71045-TC-FY; 80053; 80307; 81003; 82375; 82550; 82553; 82803; 82962; 83050; 83735; 84100; 84484; 84703; 85025; 85610; 85730; 87040; 93005; 93010; 93306-TC; 99285-25; J7030

== ENCOUNTER 2019-10-12 15:37 | Emergency (ER) | payer OTHER ==
[2019-10-12 16:00] VITALS: TEMP 97.3; BMI 20.7
[2019-10-12] MEDS ORDERED: NALOXONE HCL 0.4 MG/ML VIAL ONE ×2 (16:00)
[2019-10-12] MEDS ORDERED: ONDANSETRON 4 MG/2 ML VIAL ONE (16:01)
--- NOTE | 2019-10-12 16:41 | PDOC ---
Attending Attestation - Resident Resident Name: Anson Judge - ED Attending Attestation I have performed the following: I have examined & evaluated the patient, The case was reviewed & discussed with the resident, I agree w/resident's findings & plan, Exceptions are as noted - HPI HPI: 24 yo F history heroin abuse via inhalation presents with overdose. She was given narcan by EMS. She has not used a different dealer, however, on one prior occasion she used a different dealer and it was laced. She is going to a detox program in a few days. - Physicial Exam PE: GENERAL: Awake, alert, and fully oriented, in no acute distress HEAD: No signs of trauma EYES: PERRLA, EOMI, sclera anicteric, conjunctiva clear ENT: Auricles normal inspection, hearing grossly normal, nares patent, oropharynx clear without exudates. Moist mucosa NECK: Normal ROM, supple, no lymphadenopathy, JVD, or masses LUNGS: Breath sounds equal, clear to auscultation bilaterally. No wheezes, and no crackles HEART: Regular rate and rhythm, normal S1 and S2, no murmurs, rubs or gallops ABDOMEN: Soft, nontender, normoactive bowel sounds. No guarding, no rebound. No masses EXTREMITIES: Normal range of motion, no edema. No clubbing or cyanosis. No cords, erythema, or tenderness NEUROLOGICAL: Cranial nerves II through XII grossly intact. Normal speech, normal gait. Motor and sensation intact SKIN: Warm, dry, normal turgor, no rashes or lesions noted. - Medical Decision Making Pt monitored in ED for 3 hours after the narcan administration, she remains awake and alert. Stable for DC home.
--- NOTE | 2019-10-12 17:40 | PDOC ---
History of Present Illness - General Chief Complaint: Overdose Stated Complaint: OVERDOSE Time Seen by Provider: 10/12/19 16:15 History Source: Patient Exam Limitations: No Limitations - History of Present Illness Initial Comments: 10/12/19 17:34 24 yo F with a hx of heroin abuse (inhalation route) presents to the emergency department s/p overdose with narcan administration. Per the patient, she was using heroin from her usual dealer when she believes she snorted more than usual. She states she used 2 bags of heroin. She denies SI and HI. Last overdose was 1 month ago when she used, unknowningly, heroin laced with fentanyl from a near supplier. Per EMS, they state they used 2 mg total of narcan (1 mg IN and 1 mg IM) in the field because the patient was cyanotic and apneic when they arrived to the scene. Denies the following: fever, chills, SOB , chest pain, ears/nose/throat pain, abdominal pain, dysuria, hematuria, diarrhea, and leg pain/swelling. Endorses nausea and vomiting. Allergies: NDKA Past History - Past Medical History Allergies/Adverse Reactions: Allergies Allergy/AdvReac Type Severity Reaction Status Date / Time No Known Allergies Allergy Verified 10/12/19 16:00 Home Medications: Ambulatory Orders No Home Medications 0 dose .ROUTE UTDICT 02/26/14 COPD: No Psychiatric Problems: Yes (depression/drug abuse) - Immunization History Td Vaccination: Yes TDAP Vaccination: Yes - Psycho Social/Smoking Cessation Hx Smoking History: Never smoked Have you smoked in the past 12 months: No Number of Cigarettes Smoked Daily: 3 Information on smoking cessation initiated: No Hx Alcohol Use: No Drug/Substance Use Hx: No Substance Use Type: Heroin Review of Systems - Review of Systems Able to Perform ROS?: Yes Is the patient limited [place]ymra[place] proficient: No Constitutional: No: Chills, Diaphoresis, Fever, Weakness HEENTM: No: Ear Pain, Nose Pain, Throat Pain Respiratory: No: Cough, Shortness of Breath, Hemoptysis Cardiac (ROS): No: Chest Pain, Lightheadedness, Palpitations, Chest Tightness ABD/GI: Yes: Nausea. No: Constipated, Diarrhea, Rectal Bleeding, Vomiting, Tarry Stools : No: Dysuria, Hematuria Musculoskeletal: No: Back Pain, Joint Pain Integumentary: No: Erythema, Rash Neurological: No: Headache, Numbness Psychiatric: No: Change in Appetite Endocrine: No: Unexplained Weight Loss Hematologic/Lymphatic: No: Anemia *Physical Exam - Vital Signs Last Vital Signs Temp Pulse Resp BP Pulse Ox 97.3 F L 62 16 120/70 100 10/12/19 15:40 10/12/19 15:40 10/12/19 15:40 10/12/19 15:40 10/12/19 15:40 - Physical Exam General Appearance: Yes: Nourished, Appropriately Dressed. No: Apparent Distress, Intoxicated HEENT: positive: EOMI, FER, Normal Voice, Symmetrical, Pharynx Normal, Hearing Grossly Normal. negative: Pale Conjunctivae, Scleral Icterus (R), Scleral Icterus (L), Muffled/Hoarse voice, Pharyngeal Erythema, Tonsillar Exudate, Tonsillar Erythema, Nasal Congestion, Rhinorrhea, Excessive drooling Neck: positive: Trachea midline, Supple. negative: Tender, Lymphadenopathy (R) , Lymphadenopathy (L) Respiratory/Chest: positive: Lungs Clear, Normal Breath Sounds. negative: Chest Tender, Respiratory Distress, Accessory Muscle Use, Crackles, Rales, Rhonchi, Stridor, Wheezing Cardiovascular: positive: Regular Rhythm, Regular Rate, S1, S2. negative: Systolic Murmur Gastrointestinal/Abdominal: positive: Normal Bowel Sounds, Flat, Soft. negative : Tender Lymphatic: negative: Adenopathy Musculoskeletal: positive: Normal Inspection. negative: CVA Tenderness, Vertebral Tenderness Extremity: positive: Normal Capillary Refill, Normal Inspection, Normal Range of Motion, Other (no track sam noted on the UE and LE b/l). negative: Tender , Swelling, Calf Tenderness Integumentary: positive: Normal Color, Dry, Warm Neurologic: positive: Fully Oriented, Alert, Normal Mood/Affect Medical Decision Making - Medical Decision Making 24 yo F with a hx of heroin abuse (inhalation route) presents to the emergency department s/p overdose with narcan administration. Per the patient, she was using heroin from her usual dealer when she believes she snorted more than usual. Initial vitals; Initial Vital Signs Temp Pulse Resp BP Pulse Ox 97.3 F L 62 16 120/70 100 10/12/19 15:40 10/12/19 15:40 10/12/19 15:40 10/12/19 15:40 10/12/19 15:40 Work up: patient presents after overdose of heroin with narcan administration. per the patient, she feels asymptomatic with her nausea spontaneously resolving (she did receive 4 mg per EMS of zofran in the field). the patient states due to legal reasons, she is entering a detoxification program in 3 days, thus declining admission to our detox program. Patient was observed for 3 hours post narcan administration and is alert and oriented and ambulating. patient to be discharged. strict return precautions were given. Dispo: discharge Discharge - Discharge Information Problems reviewed: Yes Clinical Impression/Diagnosis: Heroin overdose Disposition: HOME - Follow up/Referral Referrals: Sophia Lopez MD [Primary Care Provider] - - Patient Discharge Instructions Patient Printed Discharge Instructions: DI for Drug Overdose in Adults - Post Discharge Activity
[2019-10-12 18:04] VITALS: BP 126/73; PULSE 89
== END 2019-10-12 18:07 | disposition home or self-care (01) ==
LOC: JER 15:37
DX: T40.1X1A Poisoning by heroin, accidental (unintentional), initial encounter (principal); F11.10 Opioid abuse, uncomplicated; F32.9 Major depressive disorder, single episode, unspecified; Z72.0 Tobacco use
CPT/HCPCS: 99283-25